=== PATIENT | male | born 1950 | race Two or more races ===

== ENCOUNTER 2020-09-10 18:48 | Inpatient (IN) | payer OTHER, MEDICAID ==
[~2020-09-10] VITALS: Ht 177.8 cm; Wt 118.0 kg
[~2020-09-10 18:48] MED LIST: BENA10TA9 PO; DICL75TA3 PO; DOXE25CA2 PO; GEMF600T7 PO; LOS50T PO; METF-489 PO; PRAV20TA3 PO; TRAM-297 PO
[2020-09-10] MEDS ORDERED: SUCCINYLCHOLINE CHLORIDE 20 MG/ML 10ML VIAL IV ONE (19:17)
[2020-09-10] MEDS ORDERED: ETOMIDATE (2MG/ML) 20ML VIAL IV ONE (19:17)
[2020-09-10] MEDS ORDERED: MIDAZOLAM HCL 5 MG/ML-1ML VIAL ONE (19:23)
[2020-09-10] MEDS ORDERED: MIDAZOLAM DRIP 50 mg/50mL 50 ML IV ONE (19:24)
[2020-09-10 19:36] LABS: Basophils # (auto) 0 10 ^3/uL (0-0.2); Basophils % (auto) 0.3 % (0.0-2.0); Eosinophils # (auto) 0 10 ^3/uL (0-0.8); Hematocrit 36.9 % (41.0-53.0); Lymphocytes # (auto) 1.2 10 ^3/uL (0.4-5.4); Lymphocytes % (auto) 7.7 % (10.0-50.0); Mean Corpuscular Hemoglobin 29.9 pg (28.0-32.0); Mean Corpuscular Hgb Conc. 35.3 g/dL (32.0-36.0); Mean Corpuscular Volume 84.7 fL (80.0-100.0); Monocytes % (auto) 6.7 % (0.0-12.0); Neutrophils # (auto) 13.1 10 ^3/uL (1.6-8.6); Neutrophils % (auto) 85.3 % (37.0-80.0); Platelet Count (auto) 306 10^3/uL (140-450); Red Blood Cells 4.35 10^6/uL (4.5-5.90); Red Cell Distribution Width 14.6 % (11.8-14.3); White Blood Cell 15.4 10^3/uL (4.4-10.8)
[2020-09-10] MEDS ORDERED: DOXYCYCLINE 100MG/250ML 250 ML IV ONE (19:45)
[2020-09-10] MEDS ORDERED: DexAMETHasone SOD PHOS 10MG/1ML VIAL INJ IV ONE (19:45)
[2020-09-10] MEDS ORDERED: SODIUM CHLORIDE 0.9% 500 ML IV ONE (19:45)
[2020-09-10 19:54] LABS: Albumin 2.5 g/dL (3.4-5.0); Calcium 7.7 mg/dL (8.5-10.1); Potassium 3.6 mmol/L (3.5-5.1)
[2020-09-10 20:06] LABS: BUN/Creatinine Ratio 22.5; Bilirubin, Total 1.3 mg/dL (0.2-1.0); Total Protein 7.4 g/dL (6.4-8.2)
[2020-09-10] MEDS ORDERED: SODIUM CHLORIDE 0.9% 1,000 ML IV ONE (20:15)
[2020-09-10 20:25] LABS: INR 1.29 (0.9-1.15); Partial Thromboplastin Time 26.6 sec (23.0-31.2)
[2020-09-10] MEDS ORDERED: NOREPINEPHRINE 8 MG/250ML KIT 250 ML IV ONE (20:35)
[2020-09-10] MEDS: NOREPINEPHRINE 8 MG/250ML KIT 250 ML IV SCH (20:45)
[2020-09-10] MEDS ORDERED: PHENYLEPHRINE IV 250 ML IV ONE ×2 (20:57→21:00)
[2020-09-10 21:42] LABS: Lactic Acid w/Reflex 11.2 mmol/L (0.4-2.0)
[2020-09-10 22:03] VITALS: BP 110/68
[2020-09-10] MEDS: PROPOFOL 100 ML IV SCH (22:30)
[2020-09-10] MEDS: MIDAZOLAM DRIP 50 mg/50mL 50 ML IV SCH (23:11)
[2020-09-11] VITALS (77 sets, daily range): BP systolic 28–167; BP diastolic 14–98
[2020-09-11] MEDS ORDERED: NITROGLYCERIN 0.4 MG SL TAB SL PRN (00:30)
[2020-09-11] MEDS ORDERED: ONDANSETRON HCL 4 MG/2 ML VIAL IV PRN (00:30)
[2020-09-11] MEDS ORDERED: VANCOMYCIN PER PHARMACY 0 MG IV SCH (00:30)
[2020-09-11] MEDS ORDERED: MORPHINE SULF INJ 2 MG/ML SYRINGE 1ML IV PRN (00:30)
[2020-09-11] MEDS ORDERED: SODIUM CHLORIDE 0.9% 1,000 ML IV SCH (00:30)
[2020-09-11] MEDS ORDERED: DEXTROSE (50%) 50ML SYRG IV PRN ×2 (00:30→14:30)
[2020-09-11] MEDS ORDERED: ALBUTEROL SULF HFA 90MCG INH 200DOSE IN PRN (00:30)
[2020-09-11] MEDS ORDERED: VANCOMYCIN 1GM/250ML 250 ML IV ONE ×2 (01:00→03:58)
[2020-09-11 01:36] LABS: Magnesium 2.7 mg/dL (1.6-2.6)
[2020-09-11 02:10] LABS: CRP High Sensitivity > 19.0 mg/dL (< 0.3); Lactate Dehydrogenase 2402 U/L (87-241)
[2020-09-11] MEDS ORDERED: SODIUM BICARBONATE 8.4 % INJ 50ML VIAL IV ONE (03:59)
[2020-09-11] MEDS: SODIUM BICARBONATE 50ML VIAL 100 ML in SOD CHL 0.45% 1,000 ML IV SCH ×3 (04:14→23:32)
[2020-09-11] MEDS: MIDAZOLAM DRIP 50 mg/50mL 50 ML IV SCH ×3 (04:19→12:00)
[2020-09-11] MEDS: ACCU-CHEK COMFORT CURVE STRIP VI SCH ×8 (06:00→22:30)
[2020-09-11] MEDS: InsuLIN REG 1unit/0.01ml Soln (100units/ml) SC SCH ×2 (06:00→12:12)
[2020-09-11] MEDS ORDERED: PHENYLEPHRINE IV 0 ML IV ONE (06:38)
[2020-09-11] MEDS ORDERED: BUDESONIDE (INHALATION) 180 MCG IH IN SCH (10:00)
[2020-09-11] MEDS: DOXYCYCLINE 100MG/250ML 250 ML IV SCH ×2 (10:27→22:00)
[2020-09-11] MEDS: DexAMETHasone SOD PHOS 10MG/1ML VIAL INJ IV SCH (10:28)
[2020-09-11] MEDS: ENOXAPARIN SOD 40 MG/0.4 ML SYRINGE SC SCH (10:28)
[2020-09-11] MEDS: ASCORBIC ACID 1,000 MG TAB PO SCH (10:28)
[2020-09-11] MEDS: ASPirin 81 mg TAB PO SCH (10:29)
[2020-09-11] MEDS: CHOLECALCIFEROL (VITD3) 2,000 UNIT CAP/TAB PO SCH (10:29)
[2020-09-11] MEDS: PROPOFOL 100 ML IV SCH (10:42)
[2020-09-11] MEDS: NOREPINEPHRINE 8 MG/250ML KIT 250 ML IV SCH (10:43)
[2020-09-11] MEDS ORDERED: QUEtiapine FUMARATE 25 MG TAB PO ONE (13:00)
[2020-09-11 13:11] LABS: Albumin 2.3 g/dL (3.4-5.0); Calcium 6.9 mg/dL (8.5-10.1)
[2020-09-11 13:31] LABS: Bilirubin, Total 1.4 mg/dL (0.2-1.0); Total Protein 6.9 g/dL (6.4-8.2)
[2020-09-11 13:34] LABS: BUN/Creatinine Ratio 23.6
[2020-09-11] MEDS ORDERED: HEPARIN SODIUM (PORCINE) 5000 UNITS/ML 1ML VIAL IV ONE (13:45)
[2020-09-11 14:47] LABS: Basophils # (auto) 0 10 ^3/uL (0-0.2); Basophils % (auto) 0.3 % (0.0-2.0); Eosinophils # (auto) 0 10 ^3/uL (0-0.8); Hematocrit 40.6 % (41.0-53.0); Hemoglobin 14.4 g/dL (13.5-17.5); Lymphocytes # (auto) 0.7 10 ^3/uL (0.4-5.4); Lymphocytes % (auto) 5.1 % (10.0-50.0); Mean Corpuscular Hemoglobin 29.5 pg (28.0-32.0); Mean Corpuscular Hgb Conc. 35.5 g/dL (32.0-36.0); Mean Corpuscular Volume 83.1 fL (80.0-100.0); Monocytes # (auto) 0.7 10 ^3/uL (0-1.3); Monocytes % (auto) 5.6 % (0.0-12.0); Neutrophils # (auto) 11.6 10 ^3/uL (1.6-8.6); Nucleated Red Blood Cells % 0.1 %; Platelet Count (auto) 180 10^3/uL (140-450); Red Blood Cells 4.88 10^6/uL (4.5-5.90); Red Cell Distribution Width 14.7 % (11.8-14.3)
[2020-09-11 15:12] LABS: INR 1.43 (0.9-1.15); Partial Thromboplastin Time 28.7 sec (23.0-31.2)
[2020-09-11] MEDS: InsuLIN R (HUMAN) 100 UNITS in SODIUM CHL 0.9% 99 ML IV SCH (15:38)
[2020-09-11] MEDS: HEPARIN DRIP/D5W 100UNITS/ML 250 ML IV SCH (15:40)
[2020-09-11 17:46] LABS: Urine Amorphous Crystal MANY /hpf (None Seen); Urine Bacteria NONE SEEN /hpf (None Seen); Urine Blood 2+ /uL (Negative); Urine Budding Yeast MANY /hpf (None Seen); Urine Mucus FEW (None Seen); Urine Specific Gravity 1.015 (1.001-1.035); Urine WBC 31 /hpf (0 - 3); Urine WBC Clumps PRESENT /hpf (None Seen)
[2020-09-11 18:08] LABS: Creatinine, Urine 105 mg/dL (30.0-125.0); Sodium Urine < 5 mmol/L (40-220)
[2020-09-11 22:05] LABS: Basophils # (auto) 0 10 ^3/uL (0-0.2); Basophils % (auto) 0.1 % (0.0-2.0); Eosinophils # (auto) 0 10 ^3/uL (0-0.8); Hematocrit 40.4 % (41.0-53.0); Hemoglobin 14.3 g/dL (13.5-17.5); Lymphocytes # (auto) 0.8 10 ^3/uL (0.4-5.4); Lymphocytes % (auto) 5.3 % (10.0-50.0); Mean Corpuscular Hgb Conc. 35.4 g/dL (32.0-36.0); Mean Corpuscular Volume 81.9 fL (80.0-100.0); Monocytes # (auto) 0.7 10 ^3/uL (0-1.3); Monocytes % (auto) 4.6 % (0.0-12.0); Neutrophils # (auto) 13.1 10 ^3/uL (1.6-8.6); Nucleated Red Blood Cells % 0.5 %; Platelet Count (auto) 182 10^3/uL (140-450); Red Blood Cells 4.93 10^6/uL (4.5-5.90); Red Cell Distribution Width 14.7 % (11.8-14.3); White Blood Cell 14.5 10^3/uL (4.4-10.8)
[2020-09-11 22:19] LABS: INR 1.4 (0.9-1.15); Partial Thromboplastin Time 39.3 sec (23.0-31.2)
[2020-09-11 22:20] LABS: Albumin 2.3 g/dL (3.4-5.0); Calcium 6.9 mg/dL (8.5-10.1); Magnesium 2.6 mg/dL (1.6-2.6); Potassium 3.4 mmol/L (3.5-5.1)
[2020-09-11 22:38] LABS: BUN/Creatinine Ratio 25.8; Bilirubin, Direct 0.8 mg/dL (0-0.2); Bilirubin, Total 1.1 mg/dL (0.2-1.0); Total Protein 6.7 g/dL (6.4-8.2)
[2020-09-12] VITALS (85 sets, daily range): BP systolic 101–160; BP diastolic 21–56
[2020-09-12] MEDS: ACCU-CHEK COMFORT CURVE STRIP VI SCH ×15 (01:51→23:00)
[2020-09-12] MEDS: MIDAZOLAM DRIP 50 mg/50mL 50 ML IV SCH ×3 (01:51→03:21)
[2020-09-12] MEDS ORDERED: NOREPINEPHRINE 8 MG/250ML KIT 250 ML IV ONE (05:27)
[2020-09-12 05:40] LABS: Hematocrit 38.1 % (41.0-53.0); Mean Corpuscular Hgb Conc. 36.6 g/dL (32.0-36.0); Red Cell Distribution Width 14.9 % (11.8-14.3)
[2020-09-12 05:43] LABS: Hemoglobin 13.9 g/dL (13.5-17.5); Mean Corpuscular Hemoglobin 29.5 pg (28.0-32.0); Mean Corpuscular Volume 80.6 fL (80.0-100.0); Platelet Count (auto) 204 10^3/uL (140-450); Red Blood Cells 4.72 10^6/uL (4.5-5.90); White Blood Cell 17.1 10^3/uL (4.4-10.8)
[2020-09-12 05:54] LABS: Potassium 3.2 mmol/L (3.5-5.1)
[2020-09-12 06:02] LABS: Basophils % (manual) 0 (0.0-2.0); Blast Cells 0; Eosinophils % (manual) 0 (0-7); Metamyelocytes % 0; Myelocytes % 0; Promyelocytes % 0; Reactive Lymphocytes 0
[2020-09-12 06:12] LABS: Albumin 2.2 g/dL (3.4-5.0); BUN/Creatinine Ratio 26.4; Bilirubin, Total 1.3 mg/dL (0.2-1.0); CRP High Sensitivity 16.3 mg/dL (< 0.3); Magnesium 2.5 mg/dL (1.6-2.6); Total Protein 6.5 g/dL (6.4-8.2)
[2020-09-12 07:45] LABS: INR 1.34 (0.9-1.15); Partial Thromboplastin Time 34.3 sec (23.0-31.2)
[2020-09-12 08:15] LABS: Band Neutrophils % (manual) 3; Lymphocytes % (manual) 4 (10.0-50.0); Monocytes % (manual) 9 (0-12)
[2020-09-12] MEDS ORDERED: HEPARIN SODIUM (PORCINE) 5000 UNITS/ML 1ML VIAL ONE (08:28)
[2020-09-12] MEDS: InsuLIN R (HUMAN) 100 UNITS in SODIUM CHL 0.9% 99 ML IV SCH ×7 (09:20→23:00)
[2020-09-12] MEDS: ASPirin 81 mg TAB PO SCH (10:00)
[2020-09-12] MEDS: ENOXAPARIN SOD 40 MG/0.4 ML SYRINGE SC SCH (10:00)
[2020-09-12] MEDS: DexAMETHasone SOD PHOS 10MG/1ML VIAL INJ IV SCH (10:39)
[2020-09-12] MEDS: CHOLECALCIFEROL (VITD3) 2,000 UNIT CAP/TAB PO SCH (10:40)
[2020-09-12] MEDS: DOXYCYCLINE 100MG/250ML 250 ML IV SCH (10:40)
[2020-09-12] MEDS: ASCORBIC ACID 1,000 MG TAB PO SCH (10:40)
[2020-09-12] MEDS ORDERED: VANCOMYCIN 1GM/250ML 250 ML IV ONE (12:00)
[2020-09-12] MEDS ORDERED: levoFLOXacin 500MG 100 ML IV ONE (12:15)
[2020-09-12] MEDS: POTASSIUM CHL 20MEQ/100ML 100 ML IV SCH ×3 (14:30→18:49)
[2020-09-12] MEDS: NOREPINEPHRINE 8 MG/250ML KIT 250 ML IV SCH (18:50)
[2020-09-13] VITALS (91 sets, daily range): BP systolic 57–165; BP diastolic 26–72
[2020-09-13] MEDS: InsuLIN R (HUMAN) 100 UNITS in SODIUM CHL 0.9% 99 ML IV SCH (00:30)
[2020-09-13] MEDS: ACCU-CHEK COMFORT CURVE STRIP VI SCH ×8 (00:30→18:15)
[2020-09-13] MEDS: HEPARIN DRIP/D5W 100UNITS/ML 250 ML IV SCH ×2 (01:05→11:46)
[2020-09-13] MEDS: NOREPINEPHRINE 8 MG/250ML KIT 250 ML IV SCH (01:35)
[2020-09-13 01:58] LABS: INR 1.37 (0.9-1.15); Partial Thromboplastin Time 50.1 sec (23.0-31.2)
[2020-09-13 05:13] LABS: Basophils # (auto) 0 10 ^3/uL (0-0.2); Basophils % (auto) 0.1 % (0.0-2.0); Eosinophils # (auto) 0 10 ^3/uL (0-0.8); Hematocrit 34.2 % (41.0-53.0); Hemoglobin 11.8 g/dL (13.5-17.5); Lymphocytes # (auto) 0.7 10 ^3/uL (0.4-5.4); Lymphocytes % (auto) 5.1 % (10.0-50.0); Mean Corpuscular Hemoglobin 28.7 pg (28.0-32.0); Mean Corpuscular Hgb Conc. 34.6 g/dL (32.0-36.0); Mean Corpuscular Volume 82.9 fL (80.0-100.0); Monocytes # (auto) 0.9 10 ^3/uL (0-1.3); Monocytes % (auto) 6.8 % (0.0-12.0); Neutrophils # (auto) 12.1 10 ^3/uL (1.6-8.6); Nucleated Red Blood Cells % 0.3 %; Platelet Count (auto) 224 10^3/uL (140-450); Red Blood Cells 4.13 10^6/uL (4.5-5.90); Red Cell Distribution Width 14.6 % (11.8-14.3); White Blood Cell 13.7 10^3/uL (4.4-10.8)
[2020-09-13 05:35] LABS: Calcium 6.9 mg/dL (8.5-10.1); Potassium 3.2 mmol/L (3.5-5.1)
[2020-09-13 05:44] LABS: BUN/Creatinine Ratio 28.8; CRP High Sensitivity 8.05 mg/dL (< 0.3)
[2020-09-13] MEDS: SODIUM BICARBONATE 50ML VIAL 100 ML in SOD CHL 0.45% 1,000 ML IV SCH ×2 (07:15→21:55)
[2020-09-13] MEDS: ENOXAPARIN SOD 40 MG/0.4 ML SYRINGE SC SCH (09:21)
[2020-09-13] MEDS: ASCORBIC ACID 1,000 MG TAB PO SCH ×2 (09:21→10:40)
[2020-09-13] MEDS: CHOLECALCIFEROL (VITD3) 2,000 UNIT CAP/TAB PO SCH ×2 (09:21→10:40)
[2020-09-13] MEDS: DexAMETHasone SOD PHOS 10MG/1ML VIAL INJ IV SCH ×2 (09:21→10:39)
[2020-09-13] MEDS: ASPirin 81 mg TAB PO SCH ×2 (09:21→10:39)
[2020-09-13] MEDS: levoFLOXacin 250MG 50 ML IV SCH ×2 (09:21→10:39)
[2020-09-13] MEDS: PROPOFOL 100 ML IV SCH ×2 (09:28→22:00)
[2020-09-13] MEDS ORDERED: POTASSIUM CHL 20MEQ/100ML 100 ML IV ONE ×2 (10:45→11:02)
[2020-09-13] MEDS ORDERED: DEXTROSE (50%) 50ML SYRG IV PRN (10:45)
[2020-09-13] MEDS ORDERED: PPN PER PHARMACY 0 ML IV SCH (10:45)
[2020-09-13 10:52] LABS: INR 1.34 (0.9-1.15); Partial Thromboplastin Time 44.1 sec (23.0-31.2)
[2020-09-13] MEDS: InsuLIN REG 1unit/0.01ml Soln (100units/ml) SC SCH ×2 (11:33→18:17)
[2020-09-13] MEDS: FUROSEMIDE 40 MG/4 ML VIAL IV SCH (13:00)
[2020-09-13] MEDS ORDERED: CLOPIDOGREL BISULFATE 75 MG TAB ONE (13:35)
[2020-09-13] MEDS ORDERED: FUROSEMIDE 40 MG/4 ML VIAL ONE (13:35)
[2020-09-13] MEDS ORDERED: CLOPIDOGREL 300 MG TAB PO ONE (14:30)
[2020-09-13 15:08] LABS: Creatinine, Urine 49 mg/dL (30.0-125.0); Sodium Urine 35 mmol/L (40-220)
[2020-09-13 15:15] LABS: INR 1.32 (0.9-1.15); Partial Thromboplastin Time 32.1 sec (23.0-31.2)
[2020-09-13 15:26] LABS: Magnesium 2.2 mg/dL (1.6-2.6); Phosphorus 2.7 mg/dL (2.5-4.90)
[2020-09-13] MEDS ORDERED: VANCOMYCIN 1GM/250ML 250 ML IV ONE (18:00)
[2020-09-13] MEDS ORDERED: PPN PER PHARMACY IV NR ×5 (20:00)
[2020-09-14] VITALS (100 sets, daily range): BP systolic 82–147; BP diastolic 40–65
[2020-09-14] MEDS: ACCU-CHEK COMFORT CURVE STRIP VI SCH ×5 (00:19→23:26)
[2020-09-14] MEDS: InsuLIN REG 1unit/0.01ml Soln (100units/ml) SC SCH ×4 (00:20→17:31)
[2020-09-14 03:56] LABS: Basophils # (auto) 0.2 10 ^3/uL (0-0.2); Basophils % (auto) 1.1 % (0.0-2.0); Eosinophils # (auto) 0 10 ^3/uL (0-0.8); Hemoglobin 12.5 g/dL (13.5-17.5); Lymphocytes # (auto) 0.4 10 ^3/uL (0.4-5.4); Lymphocytes % (auto) 3.2 % (10.0-50.0); Mean Corpuscular Hemoglobin 28.7 pg (28.0-32.0); Mean Corpuscular Hgb Conc. 34.7 g/dL (32.0-36.0); Mean Corpuscular Volume 82.9 fL (80.0-100.0); Monocytes # (auto) 1.1 10 ^3/uL (0-1.3); Neutrophils # (auto) 11.7 10 ^3/uL (1.6-8.6); Neutrophils % (auto) 87.7 % (37.0-80.0); Nucleated Red Blood Cells % 0.4 %; Platelet Count (auto) 231 10^3/uL (140-450); Red Blood Cells 4.34 10^6/uL (4.5-5.90); Red Cell Distribution Width 14.9 % (11.8-14.3); White Blood Cell 13.3 10^3/uL (4.4-10.8)
[2020-09-14 04:34] LABS: INR 1.25 (0.9-1.15); Partial Thromboplastin Time 28.4 sec (23.0-31.2)
[2020-09-14] MEDS: CLOPIDOGREL BISULFATE 75 MG TAB PO SCH (09:56)
[2020-09-14] MEDS: SODIUM CHLOR 0.9% PF (SALINE LOCK) 10ML VIAL/SYR IV SCH ×2 (09:56→21:37)
[2020-09-14] MEDS: FUROSEMIDE 40 MG/4 ML VIAL IV SCH (09:56)
[2020-09-14 10:44] LABS: Albumin 2.1 g/dL (3.4-5.0); Calcium 7.4 mg/dL (8.5-10.1); Potassium 3.7 mmol/L (3.5-5.1)
[2020-09-14 10:58] LABS: CRP High Sensitivity 6.24 mg/dL (< 0.3); Pre Albumin 14.2 mg/dL (20.0-40.0)
[2020-09-14 11:02] LABS: BUN/Creatinine Ratio 33.7; Bilirubin, Total 1.2 mg/dL (0.2-1.0); Phosphorus 3.8 mg/dL (2.5-4.90); Total Protein 6.4 g/dL (6.4-8.2)
[2020-09-14 11:10] LABS: Magnesium 2.2 mg/dL (1.6-2.6)
[2020-09-14] MEDS: SODIUM BICARBONATE 50ML VIAL 100 ML in SOD CHL 0.45% 1,000 ML IV SCH (12:35)
[2020-09-14] MEDS ORDERED: PPN PER PHARMACY IV NR ×8 (20:00)
[2020-09-14] MEDS: PROPOFOL 100 ML IV SCH (22:00)
[2020-09-14] MEDS: MIDAZOLAM DRIP 50 mg/50mL 50 ML IV SCH (23:00)
[2020-09-14] MEDS: NOREPINEPHRINE 8 MG/250ML KIT 250 ML IV SCH (23:00)
[2020-09-15] VITALS (91 sets, daily range): BP systolic 71–186; BP diastolic 35–79
[2020-09-15 04:43] LABS: Basophils # (auto) 0 10 ^3/uL (0-0.2); Basophils % (auto) 0.1 % (0.0-2.0); Eosinophils # (auto) 0 10 ^3/uL (0-0.8); Eosinophils % (auto) 0.1 % (0.0-7.0); Hematocrit 35.9 % (41.0-53.0); Hemoglobin 12.4 g/dL (13.5-17.5); Lymphocytes # (auto) 0.4 10 ^3/uL (0.4-5.4); Mean Corpuscular Hgb Conc. 34.5 g/dL (32.0-36.0); Mean Corpuscular Volume 84.1 fL (80.0-100.0); Monocytes # (auto) 0.9 10 ^3/uL (0-1.3); Monocytes % (auto) 7.1 % (0.0-12.0); Neutrophils # (auto) 11.6 10 ^3/uL (1.6-8.6); Neutrophils % (auto) 89.7 % (37.0-80.0); Platelet Count (auto) 209 10^3/uL (140-450); Red Blood Cells 4.27 10^6/uL (4.5-5.90); Red Cell Distribution Width 14.7 % (11.8-14.3); White Blood Cell 12.9 10^3/uL (4.4-10.8)
[2020-09-15 05:04] LABS: Magnesium 2.2 mg/dL (1.6-2.6); Potassium 3.9 mmol/L (3.5-5.1)
[2020-09-15 05:11] LABS: BUN/Creatinine Ratio 36.8; Bilirubin, Total 1.3 mg/dL (0.2-1.0); Calcium 7.7 mg/dL (8.5-10.1); Phosphorus 3.7 mg/dL (2.5-4.90); Total Protein 6.5 g/dL (6.4-8.2)
[2020-09-15] MEDS: InsuLIN REG 1unit/0.01ml Soln (100units/ml) SC SCH ×4 (06:02→17:56)
[2020-09-15] MEDS: ACCU-CHEK COMFORT CURVE STRIP VI SCH ×3 (06:03→17:54)
[2020-09-15] MEDS: FUROSEMIDE 40 MG/4 ML VIAL IV SCH (09:21)
[2020-09-15] MEDS: levoFLOXacin 250MG 50 ML IV SCH (09:22)
[2020-09-15] MEDS: DexAMETHasone SOD PHOS 10MG/1ML VIAL INJ IV SCH (09:22)
[2020-09-15] MEDS: ASPirin 81 mg TAB PO SCH (09:22)
[2020-09-15] MEDS: CLOPIDOGREL BISULFATE 75 MG TAB PO SCH (09:22)
[2020-09-15] MEDS: ASCORBIC ACID 1,000 MG TAB PO SCH (09:22)
[2020-09-15] MEDS: CHOLECALCIFEROL (VITD3) 2,000 UNIT CAP/TAB PO SCH (10:00)
[2020-09-15] MEDS: SODIUM CHLOR 0.9% PF (SALINE LOCK) 10ML VIAL/SYR IV SCH (10:00)
[2020-09-15] MEDS ORDERED: VANCOMYCIN 1GM/250ML 250 ML IV ONE (11:00)
[2020-09-15] MEDS ORDERED: TPN PER PHARMACY IV NR ×10 (20:00)
[2020-09-15] MEDS: NOREPINEPHRINE 8 MG/250ML KIT 250 ML IV SCH (20:14)
[2020-09-15] MEDS: PROPOFOL 100 ML IV SCH (22:00)
[2020-09-15] MEDS: MIDAZOLAM DRIP 50 mg/50mL 50 ML IV SCH (23:00)
[2020-09-16] VITALS (87 sets, daily range): BP systolic 96–152; BP diastolic 43–82
[2020-09-16] MEDS: ACCU-CHEK COMFORT CURVE STRIP VI SCH ×3 (00:04→11:44)
[2020-09-16] MEDS: SODIUM CHLOR 0.9% PF (SALINE LOCK) 10ML VIAL/SYR IV SCH ×3 (00:04→22:00)
[2020-09-16] MEDS: InsuLIN REG 1unit/0.01ml Soln (100units/ml) SC SCH ×4 (00:07→11:43)
[2020-09-16 04:37] LABS: Basophils # (auto) 0 10 ^3/uL (0-0.2); Basophils % (auto) 0.1 % (0.0-2.0); Eosinophils # (auto) 0 10 ^3/uL (0-0.8); Eosinophils % (auto) 0.1 % (0.0-7.0); Hemoglobin 12.4 g/dL (13.5-17.5); Lymphocytes # (auto) 0.3 10 ^3/uL (0.4-5.4); Lymphocytes % (auto) 2.3 % (10.0-50.0); Mean Corpuscular Hemoglobin 29.2 pg (28.0-32.0); Mean Corpuscular Hgb Conc. 34.6 g/dL (32.0-36.0); Mean Corpuscular Volume 84.5 fL (80.0-100.0); Monocytes # (auto) 0.4 10 ^3/uL (0-1.3); Monocytes % (auto) 3.2 % (0.0-12.0); Neutrophils # (auto) 12.2 10 ^3/uL (1.6-8.6); Neutrophils % (auto) 94.3 % (37.0-80.0); Platelet Count (auto) 176 10^3/uL (140-450); Red Blood Cells 4.25 10^6/uL (4.5-5.90); Red Cell Distribution Width 15.4 % (11.8-14.3)
[2020-09-16 04:48] LABS: Calcium 7.9 mg/dL (8.5-10.1); Magnesium 2.1 mg/dL (1.6-2.6)
[2020-09-16 05:01] LABS: Albumin 2.1 g/dL (3.4-5.0); BUN/Creatinine Ratio 44.4; CRP High Sensitivity 2.62 mg/dL (< 0.3); Phosphorus 5.2 mg/dL (2.5-4.90); Total Protein 6.2 g/dL (6.4-8.2)
[2020-09-16] MEDS: FUROSEMIDE 40 MG/4 ML VIAL IV SCH (10:17)
[2020-09-16] MEDS: DexAMETHasone SOD PHOS 10MG/1ML VIAL INJ IV SCH (10:17)
[2020-09-16] MEDS: CLOPIDOGREL BISULFATE 75 MG TAB PO SCH (10:18)
[2020-09-16] MEDS: ASCORBIC ACID 1,000 MG TAB PO SCH (10:18)
[2020-09-16] MEDS: levoFLOXacin 250MG 50 ML IV SCH (10:18)
[2020-09-16] MEDS: CHOLECALCIFEROL (VITD3) 2,000 UNIT CAP/TAB PO SCH (10:18)
[2020-09-16] MEDS: ASPirin 81 mg TAB PO SCH (10:18)
[2020-09-16] MEDS ORDERED: TPN PER PHARMACY IV NR ×8 (20:00)
[2020-09-16] MEDS: NOREPINEPHRINE 8 MG/250ML KIT 250 ML IV SCH (20:45)
[2020-09-16] MEDS: PROPOFOL 100 ML IV SCH (22:00)
[2020-09-16] MEDS: MIDAZOLAM DRIP 50 mg/50mL 50 ML IV SCH (23:00)
[2020-09-17] VITALS (85 sets, daily range): BP systolic 111–171; BP diastolic 51–81
[2020-09-17 04:51] LABS: Basophils # (auto) 0 10 ^3/uL (0-0.2); Basophils % (auto) 0.1 % (0.0-2.0); Eosinophils # (auto) 0.1 10 ^3/uL (0-0.8); Eosinophils % (auto) 0.8 % (0.0-7.0); Hematocrit 38.8 % (41.0-53.0); Hemoglobin 13.3 g/dL (13.5-17.5); Lymphocytes # (auto) 0.4 10 ^3/uL (0.4-5.4); Mean Corpuscular Hemoglobin 29.3 pg (28.0-32.0); Mean Corpuscular Hgb Conc. 34.4 g/dL (32.0-36.0); Mean Corpuscular Volume 85.4 fL (80.0-100.0); Monocytes # (auto) 0.6 10 ^3/uL (0-1.3); Monocytes % (auto) 3.6 % (0.0-12.0); Neutrophils # (auto) 16.1 10 ^3/uL (1.6-8.6); Neutrophils % (auto) 93.5 % (37.0-80.0); Platelet Count (auto) 182 10^3/uL (140-450); Red Blood Cells 4.54 10^6/uL (4.5-5.90); Red Cell Distribution Width 15.3 % (11.8-14.3); White Blood Cell 17.2 10^3/uL (4.4-10.8)
[2020-09-17 05:11] LABS: Potassium 3.9 mmol/L (3.5-5.1)
[2020-09-17 05:21] LABS: Albumin 2.3 g/dL (3.4-5.0); BUN/Creatinine Ratio 44.4; Bilirubin, Total 3.6 mg/dL (0.2-1.0); Calcium 8.4 mg/dL (8.5-10.1); Magnesium 2.1 mg/dL (1.6-2.6); Total Protein 6.8 g/dL (6.4-8.2)
[2020-09-17] MEDS: ACCU-CHEK COMFORT CURVE STRIP VI SCH ×5 (06:23→17:02)
[2020-09-17] MEDS: InsuLIN REG 1unit/0.01ml Soln (100units/ml) SC SCH ×5 (06:26→17:02)
[2020-09-17] MEDS: DexAMETHasone SOD PHOS 10MG/1ML VIAL INJ IV SCH (09:36)
[2020-09-17] MEDS: SODIUM CHLOR 0.9% PF (SALINE LOCK) 10ML VIAL/SYR IV SCH ×2 (09:37→21:59)
[2020-09-17] MEDS: FUROSEMIDE 40 MG/4 ML VIAL IV SCH (09:37)
[2020-09-17] MEDS: ASCORBIC ACID 1,000 MG TAB PO SCH (09:38)
[2020-09-17] MEDS: CHOLECALCIFEROL (VITD3) 2,000 UNIT CAP/TAB PO SCH (09:38)
[2020-09-17] MEDS: ASPirin 81 mg TAB PO SCH (09:38)
[2020-09-17] MEDS: CLOPIDOGREL BISULFATE 75 MG TAB PO SCH (09:38)
[2020-09-17] MEDS: levoFLOXacin 250MG 50 ML IV SCH (09:46)
[2020-09-17] MEDS ORDERED: VANCOMYCIN 1GM/250ML 250 ML IV ONE (11:00)
[2020-09-17] MEDS: TPN PER PHARMACY IV NR ×7 (20:02)
[2020-09-17] MEDS: NOREPINEPHRINE 8 MG/250ML KIT 250 ML IV SCH (20:45)
[2020-09-17] MEDS: PROPOFOL 100 ML IV SCH (22:00)
[2020-09-17] MEDS: MIDAZOLAM DRIP 50 mg/50mL 50 ML IV SCH (23:00)
[2020-09-18] VITALS (91 sets, daily range): BP systolic 95–157; BP diastolic 55–75
[2020-09-18] MEDS: ACCU-CHEK COMFORT CURVE STRIP VI SCH ×4 (00:16→18:00)
[2020-09-18] MEDS: InsuLIN REG 1unit/0.01ml Soln (100units/ml) SC SCH ×4 (00:18→18:56)
[2020-09-18 03:28] LABS: Basophils # (auto) 0.2 10 ^3/uL (0-0.2); Basophils % (auto) 0.9 % (0.0-2.0); Eosinophils # (auto) 0.1 10 ^3/uL (0-0.8); Eosinophils % (auto) 0.3 % (0.0-7.0); Hemoglobin 13.7 g/dL (13.5-17.5); Lymphocytes # (auto) 0.2 10 ^3/uL (0.4-5.4); Lymphocytes % (auto) 1.5 % (10.0-50.0); Mean Corpuscular Hemoglobin 28.8 pg (28.0-32.0); Mean Corpuscular Hgb Conc. 33.3 g/dL (32.0-36.0); Mean Corpuscular Volume 86.4 fL (80.0-100.0); Monocytes # (auto) 0.6 10 ^3/uL (0-1.3); Monocytes % (auto) 3.3 % (0.0-12.0); Neutrophils # (auto) 15.9 10 ^3/uL (1.6-8.6); Platelet Count (auto) 189 10^3/uL (140-450); Red Blood Cells 4.74 10^6/uL (4.5-5.90); Red Cell Distribution Width 15.8 % (11.8-14.3); White Blood Cell 16.9 10^3/uL (4.4-10.8)
[2020-09-18 04:00] LABS: Albumin 2.4 g/dL (3.4-5.0); Calcium 8.8 mg/dL (8.5-10.1); Magnesium 2.1 mg/dL (1.6-2.6); Potassium 3.5 mmol/L (3.5-5.1)
[2020-09-18 04:09] LABS: BUN/Creatinine Ratio 47.5; Bilirubin, Total 2.5 mg/dL (0.2-1.0); CRP High Sensitivity 6.42 mg/dL (< 0.3); Phosphorus 4.2 mg/dL (2.5-4.90); Total Protein 7.1 g/dL (6.4-8.2)
[2020-09-18] MEDS: DexAMETHasone SOD PHOS 10MG/1ML VIAL INJ IV SCH (10:14)
[2020-09-18] MEDS: FUROSEMIDE 40 MG/4 ML VIAL IV SCH (10:15)
[2020-09-18] MEDS: ASPirin 81 mg TAB PO SCH (10:15)
[2020-09-18] MEDS: levoFLOXacin 250MG 50 ML IV SCH (10:15)
[2020-09-18] MEDS: SODIUM CHLOR 0.9% PF (SALINE LOCK) 10ML VIAL/SYR IV SCH ×2 (10:15→22:00)
[2020-09-18] MEDS: ASCORBIC ACID 1,000 MG TAB PO SCH (10:16)
[2020-09-18] MEDS: CLOPIDOGREL BISULFATE 75 MG TAB PO SCH (10:16)
[2020-09-18] MEDS: CHOLECALCIFEROL (VITD3) 2,000 UNIT CAP/TAB PO SCH (10:16)
[2020-09-18] MEDS: VANCOMYCIN 1GM/250ML 250 ML IV SCH (10:21)
[2020-09-18 12:32] LABS: Hepatitis A Ab IgM Negative; Hepatitis B Core IgM Negative; Hepatitis B Surface Antigen Negative (Negative); Hepatitis C Antibody Negative (Negative)
[2020-09-18] MEDS: D5W 5% 1,000 ML IV SCH (16:00)
[2020-09-18] MEDS: TPN PER PHARMACY IV NR ×7 (19:20)
[2020-09-18] MEDS ORDERED: TPN PER PHARMACY IV NR ×7 (20:00)
[2020-09-18] MEDS: NOREPINEPHRINE 8 MG/250ML KIT 250 ML IV SCH (20:45)
[2020-09-18] MEDS: PROPOFOL 100 ML IV SCH (22:00)
[2020-09-18] MEDS: MIDAZOLAM DRIP 50 mg/50mL 50 ML IV SCH (23:00)
[2020-09-19] VITALS (61 sets, daily range): BP systolic 101–148; BP diastolic 55–75
[2020-09-19] MEDS: D5W 5% 1,000 ML IV SCH ×2 (03:20→16:40)
[2020-09-19 05:59] LABS: Albumin 2.5 g/dL (3.4-5.0); Calcium 8.6 mg/dL (8.5-10.1); Magnesium 2.1 mg/dL (1.6-2.6); Potassium 3.5 mmol/L (3.5-5.1)
[2020-09-19] MEDS: ACCU-CHEK COMFORT CURVE STRIP VI SCH ×5 (05:59→23:48)
[2020-09-19] MEDS: InsuLIN REG 1unit/0.01ml Soln (100units/ml) SC SCH ×5 (06:00→23:49)
[2020-09-19 06:03] LABS: BUN/Creatinine Ratio 44.8; Bilirubin, Total 1.9 mg/dL (0.2-1.0); Total Protein 7.1 g/dL (6.4-8.2)
[2020-09-19] MEDS: CLOPIDOGREL BISULFATE 75 MG TAB PO SCH (09:57)
[2020-09-19] MEDS: ASCORBIC ACID 1,000 MG TAB PO SCH (09:57)
[2020-09-19] MEDS: ASPirin 81 mg TAB PO SCH (09:57)
[2020-09-19] MEDS: DexAMETHasone SOD PHOS 10MG/1ML VIAL INJ IV SCH (09:57)
[2020-09-19] MEDS: FUROSEMIDE 40 MG/4 ML VIAL IV SCH (09:57)
[2020-09-19] MEDS: levoFLOXacin 250MG 50 ML IV SCH (09:57)
[2020-09-19] MEDS: SODIUM CHLOR 0.9% PF (SALINE LOCK) 10ML VIAL/SYR IV SCH ×2 (09:57→23:48)
[2020-09-19] MEDS: CHOLECALCIFEROL (VITD3) 2,000 UNIT CAP/TAB PO SCH (09:58)
[2020-09-19] MEDS: VANCOMYCIN 1GM/250ML 250 ML IV SCH (11:00)
[2020-09-19] MEDS ORDERED: POTASSIUM ACETATE IV NR ×9 (20:00)
[2020-09-19] MEDS ORDERED: FAT EMULSION IV NR ×9 (20:00)
[2020-09-19] MEDS ORDERED: POTASSIUM CHLORIDE IV NR ×9 (20:00)
[2020-09-19] MEDS ORDERED: [UNRECOGNIZED DRUG - OTHER] IV NR ×9 (20:00)
[2020-09-20] VITALS: BP 112/69
[2020-09-20] MEDS: ACCU-CHEK COMFORT CURVE STRIP VI SCH ×3 (05:46→17:34)
[2020-09-20] MEDS: D5W 5% 1,000 ML IV SCH (05:46)
[2020-09-20] MEDS: InsuLIN REG 1unit/0.01ml Soln (100units/ml) SC SCH ×3 (05:52→17:49)
[2020-09-20 08:00] VITALS: BP 123/67
[2020-09-20 08:50] LABS: Potassium 4.1 mmol/L (3.5-5.1)
[2020-09-20 09:06] LABS: Albumin 2.6 g/dL (3.4-5.0); BUN/Creatinine Ratio 44.6; Bilirubin, Total 3.4 mg/dL (0.2-1.0); Calcium 8.5 mg/dL (8.5-10.1); Magnesium 2.1 mg/dL (1.6-2.6); Phosphorus 6.2 mg/dL (2.5-4.90); Total Protein 7.4 g/dL (6.4-8.2)
[2020-09-20] MEDS ORDERED: TPN PER PHARMACY 0 ML IV SCH (10:00)
[2020-09-20] MEDS: DexAMETHasone SOD PHOS 10MG/1ML VIAL INJ IV SCH (10:03)
[2020-09-20] MEDS: levoFLOXacin 250MG 50 ML IV SCH (10:04)
[2020-09-20] MEDS: ASPirin 81 mg TAB PO SCH (10:04)
[2020-09-20] MEDS: CLOPIDOGREL BISULFATE 75 MG TAB PO SCH (10:04)
[2020-09-20] MEDS: SODIUM CHLOR 0.9% PF (SALINE LOCK) 10ML VIAL/SYR IV SCH (10:04)
[2020-09-20] MEDS: CHOLECALCIFEROL (VITD3) 2,000 UNIT CAP/TAB PO SCH (10:04)
[2020-09-20] MEDS: FUROSEMIDE 40 MG/4 ML VIAL IV SCH (10:04)
[2020-09-20] MEDS: ASCORBIC ACID 1,000 MG TAB PO SCH (10:04)
[2020-09-20] MEDS: VANCOMYCIN 1GM/250ML 250 ML IV SCH (11:43)
[2020-09-20] MEDS ORDERED: POTASSIUM ACETATE IV NR ×16 (12:30→20:00)
[2020-09-20] MEDS ORDERED: [UNRECOGNIZED DRUG - OTHER] IV NR ×16 (12:30→20:00)
[2020-09-20] MEDS ORDERED: CALCIUM GLUC IV NR ×16 (12:30→20:00)
[2020-09-20] MEDS ORDERED: FAT EMULSION IV NR ×16 (12:30→20:00)
[2020-09-20 16:00] VITALS: BP 107/54
[2020-09-20] MEDS ORDERED: Glucerna 1.2 Cal 1Liter BOTTLE GT SCH (18:00)
[2020-09-20] MEDS ORDERED: TPN PER PHARMACY IV NR ×8 (20:00)
[2020-09-20] MEDS ORDERED: ETOMIDATE (2MG/ML) 20ML VIAL IV ONE (23:41)
[2020-09-20] MEDS ORDERED: SUCCINYLCHOLINE CHLORIDE 20 MG/ML 10ML VIAL IV ONE (23:41)
[2020-09-20] MEDS ORDERED: NOREPINEPHRINE 8 MG/250ML KIT 250 ML IV SCH (23:45)
[2020-09-20] MEDS ORDERED: SODIUM CHLORIDE 0.9% 1,000 ML IV ONE (23:45)
[2020-09-21] VITALS (32 sets, daily range): BP systolic 63–103; BP diastolic 22–66
[2020-09-21] MEDS: SODIUM CHLOR 0.9% PF (SALINE LOCK) 10ML VIAL/SYR IV SCH ×3 (00:12→22:00)
[2020-09-21] MEDS: D5W 5% 1,000 ML IV SCH ×3 (00:12→22:00)
[2020-09-21] MEDS: Glucerna 1.2 Cal 1Liter BOTTLE GT SCH ×5 (00:12→22:00)
[2020-09-21] MEDS ORDERED: PHENYLEPHRINE IV 250 ML IV ONE (00:18)
[2020-09-21] MEDS: PHENYLEPHRINE IV 250 ML IV SCH ×3 (01:45→18:25)
[2020-09-21] MEDS: PROPOFOL 100 ML IV SCH (01:45)
[2020-09-21] MEDS: MIDAZOLAM DRIP 50 mg/50mL 50 ML IV SCH ×2 (01:45→12:32)
[2020-09-21] MEDS: NOREPINEPHRINE 8 MG/250ML KIT 250 ML IV SCH ×2 (01:45→08:00)
[2020-09-21] MEDS: fentaNYL Drip 2500mCg/250mlNS 250 ML IV SCH (01:45)
[2020-09-21] MEDS ORDERED: MIDAZOLAM DRIP 50 mg/50mL 100 ML IV ONE (01:48)
[2020-09-21 01:56] LABS: Hematocrit 44.4 % (41.0-53.0); Hemoglobin 14.2 g/dL (13.5-17.5); Mean Corpuscular Hemoglobin 28.6 pg (28.0-32.0); Mean Corpuscular Volume 89.3 fL (80.0-100.0); Platelet Count (auto) 218 10^3/uL (140-450); Red Blood Cells 4.97 10^6/uL (4.5-5.90); Red Cell Distribution Width 15.7 % (11.8-14.3); White Blood Cell 28.9 10^3/uL (4.4-10.8)
[2020-09-21 02:09] LABS: Basophils % (manual) 0 (0.0-2.0); Blast Cells 0; Eosinophils % (manual) 0 (0-7); Metamyelocytes % 0; Myelocytes % 0; Promyelocytes % 0; Reactive Lymphocytes 0
[2020-09-21 02:29] LABS: Albumin 2.4 g/dL (3.4-5.0); Calcium 7.9 mg/dL (8.5-10.1)
[2020-09-21 02:35] LABS: BUN/Creatinine Ratio 26.7; Bilirubin, Total 2.9 mg/dL (0.2-1.0); Total Protein 7.2 g/dL (6.4-8.2)
[2020-09-21 02:36] LABS: Lactic Acid w/Reflex 5.1 mmol/L (0.4-2.0)
[2020-09-21 02:54] LABS: Band Neutrophils % (manual) 3; Lymphocytes % (manual) 2 (10.0-50.0); Monocytes % (manual) 1 (0-12)
[2020-09-21] MEDS ORDERED: CALCIUM GLUC 4.65meq/50ml D5AE 50 ML IV ONE ×2 (03:15→03:16)
[2020-09-21] MEDS: SODIUM BICARBONATE 50ML VIAL 150 ML in D5W 5% 1,000 ML IV SCH ×2 (03:15→14:45)
[2020-09-21] MEDS ORDERED: SODIUM BICARBONATE 8.4 % INJ 50ML VIAL IV ONE (03:15)
[2020-09-21 05:24] LABS: Basophils # (auto) 0.1 10 ^3/uL (0-0.2); Basophils % (auto) 0.3 % (0.0-2.0); Eosinophils # (auto) 0 10 ^3/uL (0-0.8); Hematocrit 43.2 % (41.0-53.0); Hemoglobin 14.4 g/dL (13.5-17.5); Lymphocytes # (auto) 0.5 10 ^3/uL (0.4-5.4); Lymphocytes % (auto) 1.5 % (10.0-50.0); Mean Corpuscular Hemoglobin 29.2 pg (28.0-32.0); Mean Corpuscular Hgb Conc. 33.4 g/dL (32.0-36.0); Mean Corpuscular Volume 87.6 fL (80.0-100.0); Monocytes # (auto) 1.7 10 ^3/uL (0-1.3); Monocytes % (auto) 5.6 % (0.0-12.0); Neutrophils # (auto) 27.7 10 ^3/uL (1.6-8.6); Neutrophils % (auto) 92.6 % (37.0-80.0); Nucleated Red Blood Cells % 0.1 %; Platelet Count (auto) 204 10^3/uL (140-450); Red Blood Cells 4.93 10^6/uL (4.5-5.90); Red Cell Distribution Width 15.7 % (11.8-14.3)
[2020-09-21 05:39] LABS: Chloride 109 mmol/L (98-107); Sodium 143 mmol/L (136-145)
[2020-09-21 05:51] LABS: Potassium 5.7 mmol/L (3.5-5.1)
[2020-09-21 05:58] LABS: Alanine Aminotransferase 193 U/L (16-61); Albumin 2.3 g/dL (3.4-5.0); Alkaline Phosphatase 134 U/L (45-117); Anion Gap 13 (5-15); Aspartate Aminotransferase 123 U/L (15-37); BUN/Creatinine Ratio 28.3; Calcium 7.5 mg/dL (8.5-10.1); Carbon Dioxide 21 mmol/L (21-32); GFR African American 17 mL/min; GFR Non-African American 14 mL/min; Glucose 228 mg/dL (74-106); Magnesium 2.5 mg/dL (1.6-2.6); Pre Albumin 28.7 mg/dL (20.0-40.0); Total Protein 6.9 g/dL (6.4-8.2); Triglycerides 118 mg/dL (< 150)
[2020-09-21 06:00] LABS: Blood Urea Nitrogen 127 mg/dL (7-18)
[2020-09-21] MEDS: InsuLIN REG 1unit/0.01ml Soln (100units/ml) SC SCH ×4 (06:00→18:16)
[2020-09-21] MEDS: ACCU-CHEK COMFORT CURVE STRIP VI SCH ×4 (06:00→19:25)
[2020-09-21 06:37] LABS: Phosphorus > 9.0 mg/dL (2.5-4.90)
[2020-09-21] MEDS ORDERED: SODIUM CHLORIDE 0.9% 500 ML IV ONE (09:00)
[2020-09-21] MEDS: levoFLOXacin 250MG 50 ML IV SCH (10:08)
[2020-09-21] MEDS: CHOLECALCIFEROL (VITD3) 2,000 UNIT CAP/TAB PO SCH (10:10)
[2020-09-21] MEDS: FUROSEMIDE 40 MG/4 ML VIAL IV SCH (10:11)
[2020-09-21] MEDS: DexAMETHasone SOD PHOS 10MG/1ML VIAL INJ IV SCH (10:11)
[2020-09-21] MEDS: ASPirin 81 mg TAB PO SCH (10:11)
[2020-09-21] MEDS: CLOPIDOGREL BISULFATE 75 MG TAB PO SCH (10:13)
[2020-09-21] MEDS: ASCORBIC ACID 1,000 MG TAB PO SCH (10:14)
[2020-09-21] MEDS: PIPERACILLIN-TAZOB 2.25GM 50 ML IV SCH (20:00)
[2020-09-22] VITALS (55 sets, daily range): BP systolic 10–172; BP diastolic 31–64
[2020-09-22] MEDS: PROPOFOL 100 ML IV SCH ×3 (01:45→08:14)
[2020-09-22] MEDS: fentaNYL Drip 2500mCg/250mlNS 250 ML IV SCH (01:45)
[2020-09-22] MEDS: PIPERACILLIN-TAZOB 2.25GM 50 ML IV SCH ×4 (02:00→20:00)
[2020-09-22] MEDS: Glucerna 1.2 Cal 1Liter BOTTLE GT SCH ×6 (02:00→22:00)
[2020-09-22] MEDS: SODIUM BICARBONATE 50ML VIAL 150 ML in D5W 5% 1,000 ML IV SCH ×3 (02:15→22:00)
[2020-09-22] MEDS: PHENYLEPHRINE IV 250 ML IV SCH ×3 (02:45→15:12)
[2020-09-22 03:54] LABS: Basophils # (auto) 0.1 10 ^3/uL (0-0.2); Basophils % (auto) 0.2 % (0.0-2.0); Eosinophils # (auto) 0 10 ^3/uL (0-0.8); Hemoglobin 12.4 g/dL (13.5-17.5); Lymphocytes # (auto) 0.4 10 ^3/uL (0.4-5.4); Lymphocytes % (auto) 1.3 % (10.0-50.0); Monocytes # (auto) 1.3 10 ^3/uL (0-1.3)
[2020-09-22 03:57] LABS: Hematocrit 38.1 % (41.0-53.0); Mean Corpuscular Hemoglobin 28.5 pg (28.0-32.0); Mean Corpuscular Hgb Conc. 32.5 g/dL (32.0-36.0); Mean Corpuscular Volume 87.7 fL (80.0-100.0); Monocytes % (auto) 4.3 % (0.0-12.0); Neutrophils # (auto) 29.2 10 ^3/uL (1.6-8.6); Neutrophils % (auto) 94.2 % (37.0-80.0); Platelet Count (auto) 190 10^3/uL (140-450); Red Blood Cells 4.34 10^6/uL (4.5-5.90); Red Cell Distribution Width 15.9 % (11.8-14.3)
[2020-09-22 04:11] LABS: Calcium 6.4 mg/dL (8.5-10.1)
[2020-09-22 04:16] LABS: BUN/Creatinine Ratio 27.7; Bilirubin, Total 3.3 mg/dL (0.2-1.0); Total Protein 5.9 g/dL (6.4-8.2)
[2020-09-22 04:40] LABS: Potassium 5.6 mmol/L (3.5-5.1)
[2020-09-22] MEDS: ACCU-CHEK COMFORT CURVE STRIP VI SCH ×4 (06:00→18:00)
[2020-09-22] MEDS: InsuLIN REG 1unit/0.01ml Soln (100units/ml) SC SCH ×4 (06:00→18:00)
[2020-09-22] MEDS: FUROSEMIDE 40 MG/4 ML VIAL IV SCH (10:00)
[2020-09-22] MEDS: VASOPRESSIN 50 UNITS in D5W 5% 247.5 ML IV SCH (10:05)
[2020-09-22] MEDS: DexAMETHasone SOD PHOS 10MG/1ML VIAL INJ IV SCH (10:07)
[2020-09-22] MEDS: SODIUM CHLOR 0.9% PF (SALINE LOCK) 10ML VIAL/SYR IV SCH ×2 (10:08→22:00)
[2020-09-22] MEDS: CLOPIDOGREL BISULFATE 75 MG TAB PO SCH (10:09)
[2020-09-22] MEDS: ASPirin 81 mg TAB PO SCH (10:09)
[2020-09-22] MEDS: ASCORBIC ACID 1,000 MG TAB PO SCH (10:10)
[2020-09-22] MEDS: CHOLECALCIFEROL (VITD3) 2,000 UNIT CAP/TAB PO SCH (10:11)
[2020-09-22] MEDS ORDERED: SODIUM BICARBONATE 50ML VIAL 150 ML in D5W 5% 1,000 ML IV SCH (10:30)
[2020-09-22] MEDS: DOPamine 1600MCG/ML D5W 250 ML IV SCH (10:30)
[2020-09-22] MEDS: levoFLOXacin 250MG 50 ML IV SCH (10:30)
[2020-09-22] MEDS ORDERED: EPINEPHrine HCL 250 ML IV ONE (10:38)
[2020-09-22] MEDS: EPINEPHrine HCL 250 ML IV SCH ×2 (10:45→13:41)
[2020-09-22] MEDS: SODIUM ZIRCONIUM CYCL 10 GM PAK GT SCH ×2 (14:00→22:00)
[2020-09-22] MEDS: MIDAZOLAM DRIP 50 mg/50mL 50 ML IV SCH (15:00)
[2020-09-22] MEDS ORDERED: SODIUM BICARBONATE 8.4 % INJ 50ML VIAL IV ONE (15:15)
[2020-09-22] MEDS: HYDROCORTISONE SOD SUCC 100 MG/2ML INJ VIAL IV SCH (22:00)
[2020-09-23] VITALS (56 sets, daily range): BP systolic 105–163; BP diastolic 32–62
[2020-09-23 01:09] LABS: Basophils # (auto) 0 10 ^3/uL (0-0.2); Basophils % (auto) 0.1 % (0.0-2.0); Eosinophils # (auto) 0 10 ^3/uL (0-0.8); Hematocrit 32.5 % (41.0-53.0); Hemoglobin 10.8 g/dL (13.5-17.5); Lymphocytes # (auto) 0.5 10 ^3/uL (0.4-5.4); Lymphocytes % (auto) 2.6 % (10.0-50.0); Mean Corpuscular Hemoglobin 28.9 pg (28.0-32.0); Mean Corpuscular Hgb Conc. 33.2 g/dL (32.0-36.0); Monocytes # (auto) 0.9 10 ^3/uL (0-1.3); Monocytes % (auto) 4.2 % (0.0-12.0); Neutrophils # (auto) 19.3 10 ^3/uL (1.6-8.6); Neutrophils % (auto) 93.1 % (37.0-80.0); Platelet Count (auto) 161 10^3/uL (140-450); Red Blood Cells 3.73 10^6/uL (4.5-5.90); Red Cell Distribution Width 15.7 % (11.8-14.3); White Blood Cell 20.7 10^3/uL (4.4-10.8)
[2020-09-23 01:27] LABS: Potassium 5.2 mmol/L (3.5-5.1)
[2020-09-23 01:31] LABS: INR 1.54 (0.9-1.15); Partial Thromboplastin Time 31.6 sec (23.0-31.2)
[2020-09-23 01:32] LABS: Lactic Acid w/Reflex 3.1 mmol/L (0.4-2.0)
[2020-09-23 01:36] LABS: BUN/Creatinine Ratio 22.7
[2020-09-23 01:40] LABS: Calcium 5.5 mg/dL (8.5-10.1)
[2020-09-23] MEDS: fentaNYL Drip 2500mCg/250mlNS 250 ML IV SCH ×2 (01:45→13:25)
[2020-09-23] MEDS: NOREPINEPHRINE 8 MG/250ML KIT 250 ML IV SCH (01:45)
[2020-09-23] MEDS: PIPERACILLIN-TAZOB 2.25GM 50 ML IV SCH ×4 (02:00→20:00)
[2020-09-23] MEDS: Glucerna 1.2 Cal 1Liter BOTTLE GT SCH ×6 (02:00→22:00)
[2020-09-23] MEDS ORDERED: CALCIUM GLUC 4.65meq/50ml D5AE 50 ML IV ONE (03:00)
[2020-09-23] MEDS: PHENYLEPHRINE IV 250 ML IV SCH (03:45)
[2020-09-23] MEDS ORDERED: ACETAMINOPHEN 650 MG RECT SUPP PR ONE (04:27)
[2020-09-23 04:36] LABS: Basophils # (auto) 0 10 ^3/uL (0-0.2); Basophils % (auto) 0.1 % (0.0-2.0); Eosinophils # (auto) 0 10 ^3/uL (0-0.8); Eosinophils % (auto) 0.1 % (0.0-7.0); Hematocrit 30.5 % (41.0-53.0); Hemoglobin 10.4 g/dL (13.5-17.5); Lymphocytes # (auto) 0.4 10 ^3/uL (0.4-5.4); Lymphocytes % (auto) 2.5 % (10.0-50.0); Mean Corpuscular Hemoglobin 29.5 pg (28.0-32.0); Mean Corpuscular Hgb Conc. 34.2 g/dL (32.0-36.0); Mean Corpuscular Volume 86.4 fL (80.0-100.0); Monocytes # (auto) 0.7 10 ^3/uL (0-1.3); Monocytes % (auto) 4.3 % (0.0-12.0); Neutrophils # (auto) 15.7 10 ^3/uL (1.6-8.6); Nucleated Red Blood Cells % 0.1 %; Platelet Count (auto) 151 10^3/uL (140-450); Red Blood Cells 3.54 10^6/uL (4.5-5.90); Red Cell Distribution Width 15.5 % (11.8-14.3); White Blood Cell 16.8 10^3/uL (4.4-10.8)
[2020-09-23 04:45] LABS: INR 1.52 (0.9-1.15); Partial Thromboplastin Time 31.5 sec (23.0-31.2)
[2020-09-23] MEDS ORDERED: ACETAMINOPHEN 650 MG RECT SUPP PR PRN (04:45)
[2020-09-23 04:54] LABS: Potassium 5.2 mmol/L (3.5-5.1)
[2020-09-23] MEDS ORDERED: CALCIUM GLUC 4.65 MEQ/10ML 10 ML IV ONE (04:56)
[2020-09-23 05:03] LABS: Albumin 1.5 g/dL (3.4-5.0); BUN/Creatinine Ratio 24.4; Bilirubin, Total 2.8 mg/dL (0.2-1.0); Total Protein 4.9 g/dL (6.4-8.2)
[2020-09-23 05:10] LABS: Calcium 5.4 mg/dL (8.5-10.1)
[2020-09-23] MEDS: ACCU-CHEK COMFORT CURVE STRIP VI SCH ×5 (05:28→23:24)
[2020-09-23] MEDS: InsuLIN REG 1unit/0.01ml Soln (100units/ml) SC SCH ×5 (05:28→23:26)
[2020-09-23] MEDS: HYDROCORTISONE SOD SUCC 100 MG/2ML INJ VIAL IV SCH (06:00)
[2020-09-23] MEDS: SODIUM ZIRCONIUM CYCL 10 GM PAK GT SCH (06:00)
[2020-09-23] MEDS: VASOPRESSIN 50 UNITS in D5W 5% 247.5 ML IV SCH (08:45)
[2020-09-23] MEDS: levoFLOXacin 250MG 50 ML IV SCH (09:07)
[2020-09-23] MEDS: CLOPIDOGREL BISULFATE 75 MG TAB PO SCH ×2 (09:13→10:00)
[2020-09-23] MEDS: FUROSEMIDE 40 MG/4 ML VIAL IV SCH (09:13)
[2020-09-23] MEDS: SODIUM CHLOR 0.9% PF (SALINE LOCK) 10ML VIAL/SYR IV SCH ×2 (09:13→22:00)
[2020-09-23] MEDS: CHOLECALCIFEROL (VITD3) 2,000 UNIT CAP/TAB PO SCH (09:14)
[2020-09-23] MEDS: ASCORBIC ACID 1,000 MG TAB PO SCH (09:14)
[2020-09-23] MEDS: ASPirin 81 mg TAB PO SCH ×2 (09:14→10:00)
[2020-09-23] MEDS ORDERED: DexAMETHasone SOD PHOS 10MG/1ML VIAL INJ IV SCH (10:00)
[2020-09-23] MEDS: DOPamine 1600MCG/ML D5W 250 ML IV SCH (10:30)
[2020-09-23] MEDS: SODIUM BICARBONATE 50ML VIAL 150 ML in D5W 5% 1,000 ML IV SCH ×2 (10:56→18:25)
[2020-09-23] MEDS: PHENYLEPHRINE INJ 40 MG in SODIUM CHL 0.9% 250 ML IV SCH (14:00)
[2020-09-23] MEDS ORDERED: PHENYLEPHRINE IV 250 ML IV ONE ×2 (14:08→23:04)
[2020-09-23] MEDS: INSULIN LANTUS (GLARGINE) 1 /0.01ml (100units/ml) SC SCH (22:00)
[2020-09-23] MEDS ORDERED: PHENYLEPHRINE HCL 10 MG/ML VL ONE (23:04)
[2020-09-24] VITALS (48 sets, daily range): BP systolic 70–158; BP diastolic 32–75
[2020-09-24] MEDS: fentaNYL Drip 2500mCg/250mlNS 250 ML IV SCH (01:45)
[2020-09-24] MEDS: PROPOFOL 100 ML IV SCH (01:45)
[2020-09-24] MEDS: Glucerna 1.2 Cal 1Liter BOTTLE GT SCH ×6 (02:00→22:00)
[2020-09-24] MEDS: PIPERACILLIN-TAZOB 2.25GM 50 ML IV SCH ×4 (02:00→20:00)
[2020-09-24] MEDS ORDERED: PHENYLEPHRINE HCL 10 MG/ML VL ONE ×2 (02:11→06:33)
[2020-09-24] MEDS ORDERED: PHENYLEPHRINE IV 250 ML IV ONE ×2 (02:11→06:34)
[2020-09-24] MEDS ORDERED: SODIUM BICARBONATE 8.4 % INJ 50ML VIAL IV ONE ×2 (06:00→22:59)
[2020-09-24] MEDS: InsuLIN REG 1unit/0.01ml Soln (100units/ml) SC SCH ×3 (06:17→17:45)
[2020-09-24] MEDS: ACCU-CHEK COMFORT CURVE STRIP VI SCH ×3 (06:17→17:45)
[2020-09-24 06:20] LABS: Basophils # (auto) 0 10 ^3/uL (0-0.2); Basophils % (auto) 0.2 % (0.0-2.0); Eosinophils # (auto) 0 10 ^3/uL (0-0.8); Eosinophils % (auto) 0.1 % (0.0-7.0); Hematocrit 28.4 % (41.0-53.0); Hemoglobin 9.8 g/dL (13.5-17.5); Lymphocytes # (auto) 0.2 10 ^3/uL (0.4-5.4); Lymphocytes % (auto) 1.4 % (10.0-50.0); Mean Corpuscular Hemoglobin 29.4 pg (28.0-32.0); Mean Corpuscular Hgb Conc. 34.5 g/dL (32.0-36.0); Mean Corpuscular Volume 85.2 fL (80.0-100.0); Monocytes # (auto) 0.3 10 ^3/uL (0-1.3); Monocytes % (auto) 1.8 % (0.0-12.0); Neutrophils # (auto) 14.6 10 ^3/uL (1.6-8.6); Neutrophils % (auto) 96.5 % (37.0-80.0); Platelet Count (auto) 127 10^3/uL (140-450); Red Blood Cells 3.34 10^6/uL (4.5-5.90); Red Cell Distribution Width 15.7 % (11.8-14.3); White Blood Cell 15.2 10^3/uL (4.4-10.8)
[2020-09-24 06:22] LABS: BUN/Creatinine Ratio 25.6; Magnesium 2.6 mg/dL (1.6-2.6); Potassium 4.5 mmol/L (3.5-5.1)
[2020-09-24 06:29] LABS: Calcium 5.3 mg/dL (8.5-10.1)
[2020-09-24] MEDS: MIDAZOLAM DRIP 50 mg/50mL 50 ML IV SCH ×2 (08:08→13:00)
[2020-09-24] MEDS: NOREPINEPHRINE 8 MG/250ML KIT 250 ML IV SCH (08:10)
[2020-09-24] MEDS: CHOLECALCIFEROL (VITD3) 2,000 UNIT CAP/TAB PO SCH (08:10)
[2020-09-24] MEDS: SODIUM CHLOR 0.9% PF (SALINE LOCK) 10ML VIAL/SYR IV SCH ×2 (08:10→22:13)
[2020-09-24] MEDS: ASCORBIC ACID 1,000 MG TAB PO SCH (08:10)
[2020-09-24] MEDS: VASOPRESSIN 50 UNITS in D5W 5% 247.5 ML IV SCH (08:45)
[2020-09-24] MEDS ORDERED: CALCIUM GLUC 4.65meq/50ml D5AE 50 ML IV ONE (09:00)
[2020-09-24] MEDS: SODIUM BICARBONATE 50ML VIAL 150 ML in D5W 5% 1,000 ML IV SCH ×3 (09:30→15:37)
[2020-09-24] MEDS: CLOPIDOGREL BISULFATE 75 MG TAB PO SCH (10:00)
[2020-09-24] MEDS: ASPirin 81 mg TAB PO SCH (10:00)
[2020-09-24] MEDS: PHENYLEPHRINE INJ 40 MG in SODIUM CHL 0.9% 250 ML IV SCH ×2 (10:06→20:40)
[2020-09-24] MEDS: levoFLOXacin 250MG 50 ML IV SCH (10:07)
[2020-09-24] MEDS: DOPamine 1600MCG/ML D5W 250 ML IV SCH (10:08)
[2020-09-24] MEDS: EPINEPHrine HCL 250 ML IV SCH (10:08)
[2020-09-24] MEDS ORDERED: HEPARIN 1,000 UNITS/ml 1ML VIAL ONE (16:39)
[2020-09-24] MEDS ORDERED: HEPARIN SODIUM (PORCINE) 5000 UNITS/ML 1ML VIAL ONE (17:14)
[2020-09-24] MEDS: INSULIN LANTUS (GLARGINE) 1 /0.01ml (100units/ml) SC SCH (22:00)
[2020-09-24] MEDS: METOCLOPRAMIDE HCL 5MG/ml INJ 2ml VIAL IV SCH (22:00)
[2020-09-25] VITALS (51 sets, daily range): BP systolic 97–204; BP diastolic 48–92
[2020-09-25] MEDS: fentaNYL Drip 2500mCg/250mlNS 250 ML IV SCH (01:45)
[2020-09-25] MEDS: PROPOFOL 100 ML IV SCH (01:45)
[2020-09-25] MEDS: Glucerna 1.2 Cal 1Liter BOTTLE GT SCH ×6 (02:00→22:00)
[2020-09-25] MEDS: PIPERACILLIN-TAZOB 2.25GM 50 ML IV SCH ×4 (02:00→20:31)
[2020-09-25 05:05] LABS: Basophils # (auto) 0 10 ^3/uL (0-0.2); Eosinophils # (auto) 0 10 ^3/uL (0-0.8); Hematocrit 24.6 % (41.0-53.0); Hemoglobin 8.7 g/dL (13.5-17.5); Lymphocytes # (auto) 0.3 10 ^3/uL (0.4-5.4); Lymphocytes % (auto) 1.8 % (10.0-50.0); Mean Corpuscular Hemoglobin 29.6 pg (28.0-32.0); Mean Corpuscular Hgb Conc. 35.4 g/dL (32.0-36.0); Mean Corpuscular Volume 83.5 fL (80.0-100.0); Monocytes # (auto) 0.6 10 ^3/uL (0-1.3); Monocytes % (auto) 4.3 % (0.0-12.0); Neutrophils # (auto) 13.5 10 ^3/uL (1.6-8.6); Neutrophils % (auto) 93.9 % (37.0-80.0); Platelet Count (auto) 121 10^3/uL (140-450); Red Blood Cells 2.95 10^6/uL (4.5-5.90); Red Cell Distribution Width 15.7 % (11.8-14.3); White Blood Cell 14.4 10^3/uL (4.4-10.8)
[2020-09-25 05:29] LABS: INR 1.85 (0.9-1.15); Partial Thromboplastin Time 36.9 sec (23.0-31.2)
[2020-09-25 05:31] LABS: Albumin 1.3 g/dL (3.4-5.0); Potassium 3.9 mmol/L (3.5-5.1)
[2020-09-25 05:36] LABS: Total Protein 5.1 g/dL (6.4-8.2)
[2020-09-25] MEDS: METOCLOPRAMIDE HCL 5MG/ml INJ 2ml VIAL IV SCH ×3 (06:19→22:00)
[2020-09-25] MEDS: InsuLIN REG 1unit/0.01ml Soln (100units/ml) SC SCH ×4 (06:19→18:32)
[2020-09-25] MEDS: ACCU-CHEK COMFORT CURVE STRIP VI SCH ×4 (06:20→18:00)
[2020-09-25 06:29] LABS: BUN/Creatinine Ratio 24.6
[2020-09-25 06:32] LABS: Calcium 5.3 mg/dL (8.5-10.1)
[2020-09-25] MEDS ORDERED: SODIUM CHL 0.9% 1000 ML BAG XX ONE (07:00)
[2020-09-25] MEDS: SODIUM BICARBONATE 50ML VIAL 150 ML in D5W 5% 1,000 ML IV SCH ×4 (07:40→23:57)
[2020-09-25] MEDS: VASOPRESSIN 50 UNITS in D5W 5% 247.5 ML IV SCH (08:45)
[2020-09-25] MEDS: levoFLOXacin 250MG 50 ML IV SCH (09:42)
[2020-09-25] MEDS: SODIUM CHLOR 0.9% PF (SALINE LOCK) 10ML VIAL/SYR IV SCH ×2 (09:42→22:00)
[2020-09-25] MEDS: ASPirin 81 mg TAB PO SCH (09:42)
[2020-09-25] MEDS: CLOPIDOGREL BISULFATE 75 MG TAB PO SCH (09:43)
[2020-09-25] MEDS: CHOLECALCIFEROL (VITD3) 2,000 UNIT CAP/TAB PO SCH (09:43)
[2020-09-25] MEDS: ASCORBIC ACID 1,000 MG TAB PO SCH (09:43)
[2020-09-25] MEDS: EPINEPHrine HCL 250 ML IV SCH (10:45)
[2020-09-25] MEDS: MIDAZOLAM DRIP 50 mg/50mL 50 ML IV SCH ×5 (11:08→20:44)
[2020-09-25] MEDS: NOREPINEPHRINE 8 MG/250ML KIT 250 ML IV SCH ×2 (12:21→18:59)
[2020-09-25] MEDS: PHENYLEPHRINE INJ 40 MG in SODIUM CHL 0.9% 250 ML IV SCH (13:20)
[2020-09-25] MEDS ORDERED: ALBUMIN 25% 100 ML IV ONE ×2 (15:55→16:00)
[2020-09-25] MEDS ORDERED: EPOETIN ALFA 10,000 UNIT/1 ML VIAL SC ONE (21:00)
[2020-09-25] MEDS: INSULIN LANTUS (GLARGINE) 1 /0.01ml (100units/ml) SC SCH (22:00)
[2020-09-26] VITALS (69 sets, daily range): BP systolic 75–174; BP diastolic 39–69
[2020-09-26] MEDS: ACCU-CHEK COMFORT CURVE STRIP VI SCH ×4 (00:29→18:02)
[2020-09-26] MEDS: fentaNYL Drip 2500mCg/250mlNS 250 ML IV SCH (01:45)
[2020-09-26] MEDS: PROPOFOL 100 ML IV SCH (01:45)
[2020-09-26] MEDS: Glucerna 1.2 Cal 1Liter BOTTLE GT SCH ×3 (02:00→21:33)
[2020-09-26] MEDS: PIPERACILLIN-TAZOB 2.25GM 50 ML IV SCH ×4 (02:29→19:54)
[2020-09-26 05:34] LABS: Basophils # (auto) 0 10 ^3/uL (0-0.2); Basophils % (auto) 0.1 % (0.0-2.0); Eosinophils # (auto) 0 10 ^3/uL (0-0.8); Eosinophils % (auto) 0.5 % (0.0-7.0); Lymphocytes # (auto) 0.3 10 ^3/uL (0.4-5.4); Mean Corpuscular Hemoglobin 29.5 pg (28.0-32.0)
[2020-09-26 05:39] LABS: Hematocrit 20.3 % (41.0-53.0); Hemoglobin 7.1 g/dL (13.5-17.5); Mean Corpuscular Hgb Conc. 35.1 g/dL (32.0-36.0); Monocytes # (auto) 0.1 10 ^3/uL (0-1.3); Monocytes % (auto) 1.9 % (0.0-12.0); Neutrophils # (auto) 7.4 10 ^3/uL (1.6-8.6); Neutrophils % (auto) 93.5 % (37.0-80.0); Nucleated Red Blood Cells % 0.1 %; Platelet Count (auto) 101 10^3/uL (140-450); Red Blood Cells 2.42 10^6/uL (4.5-5.90); Red Cell Distribution Width 15.6 % (11.8-14.3); White Blood Cell 7.9 10^3/uL (4.4-10.8)
[2020-09-26] MEDS: InsuLIN REG 1unit/0.01ml Soln (100units/ml) SC SCH ×3 (05:51→18:00)
[2020-09-26 05:52] LABS: Potassium 3.5 mmol/L (3.5-5.1)
[2020-09-26] MEDS: MIDAZOLAM DRIP 50 mg/50mL 50 ML IV SCH ×4 (05:53→18:56)
[2020-09-26 05:59] LABS: BUN/Creatinine Ratio 21.7
[2020-09-26] MEDS: METOCLOPRAMIDE HCL 5MG/ml INJ 2ml VIAL IV SCH ×3 (06:00→21:34)
[2020-09-26 07:02] LABS: Calcium 5.5 mg/dL (8.5-10.1)
[2020-09-26] MEDS: SODIUM BICARBONATE 50ML VIAL 150 ML in D5W 5% 1,000 ML IV SCH (08:24)
[2020-09-26] MEDS: NOREPINEPHRINE 8 MG/250ML KIT 250 ML IV SCH ×2 (08:26→17:45)
[2020-09-26] MEDS: VASOPRESSIN 50 UNITS in D5W 5% 247.5 ML IV SCH (08:45)
[2020-09-26] MEDS: CHOLECALCIFEROL (VITD3) 2,000 UNIT CAP/TAB PO SCH (10:00)
[2020-09-26] MEDS: SODIUM CHLOR 0.9% PF (SALINE LOCK) 10ML VIAL/SYR IV SCH ×2 (10:01→21:34)
[2020-09-26] MEDS: levoFLOXacin 250MG 50 ML IV SCH (10:01)
[2020-09-26] MEDS: DOPamine 1600MCG/ML D5W 250 ML IV SCH (10:01)
[2020-09-26] MEDS: ASPirin 81 mg TAB PO SCH (10:02)
[2020-09-26] MEDS: ASCORBIC ACID 1,000 MG TAB PO SCH (10:02)
[2020-09-26] MEDS: CLOPIDOGREL BISULFATE 75 MG TAB PO SCH (10:02)
[2020-09-26] MEDS: EPINEPHrine HCL 250 ML IV SCH (10:45)
[2020-09-26] MEDS: POTASSIUM CHL 20MEQ/100ML 100 ML IV SCH ×2 (16:10→18:01)
[2020-09-26] MEDS: INSULIN LANTUS (GLARGINE) 1 /0.01ml (100units/ml) SC SCH (21:35)
[2020-09-26] MEDS: ACETAMINOPHEN 500 MG TAB PO PRN (21:44)
[2020-09-26] MEDS: PHENYLEPHRINE INJ 40 MG in SODIUM CHL 0.9% 250 ML IV SCH (22:40)
[2020-09-27] VITALS (76 sets, daily range): BP systolic 83–173; BP diastolic 41–78
[2020-09-27] MEDS: ACCU-CHEK COMFORT CURVE STRIP VI SCH ×5 (00:35→23:43)
[2020-09-27] MEDS: InsuLIN REG 1unit/0.01ml Soln (100units/ml) SC SCH ×5 (00:36→23:43)
[2020-09-27] MEDS: fentaNYL Drip 2500mCg/250mlNS 250 ML IV SCH (01:45)
[2020-09-27] MEDS: PROPOFOL 100 ML IV SCH (01:45)
[2020-09-27] MEDS: Glucerna 1.2 Cal 1Liter BOTTLE GT SCH ×3 (02:00→21:18)
[2020-09-27] MEDS: PIPERACILLIN-TAZOB 2.25GM 50 ML IV SCH ×3 (02:26→13:38)
[2020-09-27] MEDS: MIDAZOLAM DRIP 50 mg/50mL 50 ML IV SCH ×4 (02:27→23:42)
[2020-09-27] MEDS: METOCLOPRAMIDE HCL 5MG/ml INJ 2ml VIAL IV SCH ×3 (05:31→21:20)
[2020-09-27 06:09] LABS: Basophils # (auto) 0 10 ^3/uL (0-0.2); Basophils % (auto) 0.1 % (0.0-2.0); Eosinophils # (auto) 0.1 10 ^3/uL (0-0.8); Hemoglobin 7.9 g/dL (13.5-17.5); Lymphocytes # (auto) 0.6 10 ^3/uL (0.4-5.4); Platelet Count (auto) 143 10^3/uL (140-450); White Blood Cell 13.8 10^3/uL (4.4-10.8)
[2020-09-27 06:11] LABS: Eosinophils % (auto) 0.7 % (0.0-7.0); Hematocrit 23.1 % (41.0-53.0); Lymphocytes % (auto) 4.6 % (10.0-50.0); Mean Corpuscular Hemoglobin 29.2 pg (28.0-32.0); Mean Corpuscular Hgb Conc. 34.1 g/dL (32.0-36.0); Mean Corpuscular Volume 85.8 fL (80.0-100.0); Monocytes # (auto) 0.4 10 ^3/uL (0-1.3); Monocytes % (auto) 2.8 % (0.0-12.0); Neutrophils # (auto) 12.6 10 ^3/uL (1.6-8.6); Neutrophils % (auto) 91.8 % (37.0-80.0); Nucleated Red Blood Cells % 0.5 %; Red Blood Cells 2.69 10^6/uL (4.5-5.90); Red Cell Distribution Width 15.7 % (11.8-14.3)
[2020-09-27 06:24] LABS: Albumin 1.3 g/dL (3.4-5.0)
[2020-09-27 06:33] LABS: BUN/Creatinine Ratio 21.8; Bilirubin, Total 1.8 mg/dL (0.2-1.0); CRP High Sensitivity 14.3 mg/dL (< 0.3); Total Protein 5.3 g/dL (6.4-8.2)
[2020-09-27 06:57] LABS: INR 4.14 (0.9-1.15)
[2020-09-27] MEDS ORDERED: SODIUM CHL 0.9% 1000 ML BAG XX ONE (07:00)
[2020-09-27 07:53] LABS: Calcium 5.3 mg/dL (8.5-10.1)
[2020-09-27] MEDS: VASOPRESSIN 50 UNITS in D5W 5% 247.5 ML IV SCH (08:25)
[2020-09-27] MEDS: levoFLOXacin 250MG 50 ML IV SCH (09:52)
[2020-09-27] MEDS: SODIUM CHLOR 0.9% PF (SALINE LOCK) 10ML VIAL/SYR IV SCH ×2 (09:52→21:18)
[2020-09-27] MEDS: CLOPIDOGREL BISULFATE 75 MG TAB PO SCH (09:52)
[2020-09-27] MEDS: ASPirin 81 mg TAB PO SCH (09:52)
[2020-09-27] MEDS: ASCORBIC ACID 1,000 MG TAB PO SCH (09:53)
[2020-09-27] MEDS: CHOLECALCIFEROL (VITD3) 2,000 UNIT CAP/TAB PO SCH (09:53)
[2020-09-27] MEDS: DOPamine 1600MCG/ML D5W 250 ML IV SCH ×2 (10:30→11:05)
[2020-09-27] MEDS: EPINEPHrine HCL 250 ML IV SCH (10:45)
[2020-09-27] MEDS: NOREPINEPHRINE 8 MG/250ML KIT 250 ML IV SCH ×3 (11:06→22:12)
[2020-09-27] MEDS: ALBUMIN 25% 100 ML IV PRN ×2 (11:51→11:53)
[2020-09-27] MEDS ORDERED: CALCIUM GLUC 4.65meq/50ml D5AE 50 ML IV ONE (14:00)
[2020-09-27] MEDS: PHENYLEPHRINE INJ 40 MG in SODIUM CHL 0.9% 250 ML IV SCH (15:20)
[2020-09-27] MEDS ORDERED: phytonadione 10 MG in SODIUM CHL 0.9% 50 ML IV ONE (19:30)
[2020-09-27] MEDS ORDERED: EPOETIN ALFA 10,000 UNIT/1 ML VIAL SC ONE (21:00)
[2020-09-27] MEDS: INSULIN LANTUS (GLARGINE) 1 /0.01ml (100units/ml) SC SCH (21:19)
[2020-09-28] VITALS (112 sets, daily range): BP systolic 75–168; BP diastolic 46–78
[2020-09-28] MEDS: fentaNYL Drip 2500mCg/250mlNS 250 ML IV SCH (01:45)
[2020-09-28] MEDS: PROPOFOL 100 ML IV SCH (01:45)
[2020-09-28] MEDS: Glucerna 1.2 Cal 1Liter BOTTLE GT SCH ×6 (02:00→21:33)
[2020-09-28] MEDS: MIDAZOLAM DRIP 50 mg/50mL 50 ML IV SCH (05:26)
[2020-09-28] MEDS: InsuLIN REG 1unit/0.01ml Soln (100units/ml) SC SCH ×3 (06:00→18:00)
[2020-09-28] MEDS: METOCLOPRAMIDE HCL 5MG/ml INJ 2ml VIAL IV SCH ×3 (06:02→21:34)
[2020-09-28] MEDS: ACCU-CHEK COMFORT CURVE STRIP VI SCH ×3 (06:03→18:00)
[2020-09-28 07:04] LABS: Mean Corpuscular Hemoglobin 29.1 pg (28.0-32.0); Mean Corpuscular Hgb Conc. 33.2 g/dL (32.0-36.0); Mean Corpuscular Volume 87.5 fL (80.0-100.0); Platelet Count (auto) 161 10^3/uL (140-450); Red Blood Cells 2.29 10^6/uL (4.5-5.90); Red Cell Distribution Width 15.9 % (11.8-14.3); White Blood Cell 13.3 10^3/uL (4.4-10.8)
[2020-09-28 07:05] LABS: INR 1.4 (0.9-1.15); Partial Thromboplastin Time 31.9 sec (23.0-31.2)
[2020-09-28 07:12] LABS: Hemoglobin 6.7 g/dL (13.5-17.5)
[2020-09-28 07:13] LABS: Basophils % (manual) 0 (0.0-2.0); Blast Cells 0; Metamyelocytes % 0; Promyelocytes % 0; Reactive Lymphocytes 0
[2020-09-28 07:17] LABS: Albumin 1.9 g/dL (3.4-5.0); BUN/Creatinine Ratio 20.7; Calcium 6.2 mg/dL (8.5-10.1)
[2020-09-28 07:23] LABS: Bilirubin, Total 1.9 mg/dL (0.2-1.0); Total Protein 5.4 g/dL (6.4-8.2)
[2020-09-28] MEDS: PHENYLEPHRINE INJ 40 MG in SODIUM CHL 0.9% 250 ML IV SCH ×2 (08:00→17:20)
[2020-09-28] MEDS: CLOPIDOGREL BISULFATE 75 MG TAB PO SCH (08:44)
[2020-09-28] MEDS: VASOPRESSIN 50 UNITS in D5W 5% 247.5 ML IV SCH (08:45)
[2020-09-28] MEDS ORDERED: ASPirin 81 mg TAB PO SCH (10:00)
[2020-09-28] MEDS: SODIUM CHLOR 0.9% PF (SALINE LOCK) 10ML VIAL/SYR IV SCH ×2 (10:00→21:34)
[2020-09-28] MEDS ORDERED: FAMOTIDINE (10MG/ML) 2ML VL IV SCH (10:00)
[2020-09-28 10:16] LABS: Band Neutrophils % (manual) 9; Eosinophils % (manual) 6 (0-7); Lymphocytes % (manual) 4 (10.0-50.0); Monocytes % (manual) 2 (0-12); Myelocytes % 1
[2020-09-28] MEDS: EPINEPHrine HCL 250 ML IV SCH (10:45)
[2020-09-28] MEDS: DOPamine 1600MCG/ML D5W 250 ML IV SCH (18:30)
[2020-09-28] MEDS: INSULIN LANTUS (GLARGINE) 1 /0.01ml (100units/ml) SC SCH (21:37)
[2020-09-29] VITALS (73 sets, daily range): BP systolic 89–139; BP diastolic 44–72
[2020-09-29] MEDS: InsuLIN REG 1unit/0.01ml Soln (100units/ml) SC SCH ×5 (00:27→23:56)
[2020-09-29] MEDS: fentaNYL Drip 2500mCg/250mlNS 250 ML IV SCH ×2 (00:45→13:04)
[2020-09-29] MEDS: PHENYLEPHRINE INJ 40 MG in SODIUM CHL 0.9% 250 ML IV SCH (00:45)
[2020-09-29] MEDS: PROPOFOL 100 ML IV SCH (01:45)
[2020-09-29] MEDS: Glucerna 1.2 Cal 1Liter BOTTLE GT SCH ×6 (01:52→21:50)
[2020-09-29] MEDS: NOREPINEPHRINE 8 MG/250ML KIT 250 ML IV SCH (01:52)
[2020-09-29] MEDS: METOCLOPRAMIDE HCL 5MG/ml INJ 2ml VIAL IV SCH ×3 (06:00→21:50)
[2020-09-29] MEDS: ACCU-CHEK COMFORT CURVE STRIP VI SCH ×5 (06:00→23:56)
[2020-09-29 06:15] LABS: Hematocrit 26.7 % (41.0-53.0); Hemoglobin 9.3 g/dL (13.5-17.5); Mean Corpuscular Hemoglobin 30.7 pg (28.0-32.0); Mean Corpuscular Hgb Conc. 34.8 g/dL (32.0-36.0); Mean Corpuscular Volume 88.3 fL (80.0-100.0); Platelet Count (auto) 172 10^3/uL (140-450); Red Blood Cells 3.02 10^6/uL (4.5-5.90); Red Cell Distribution Width 15.9 % (11.8-14.3); White Blood Cell 14.7 10^3/uL (4.4-10.8)
[2020-09-29 06:27] LABS: Potassium 3.1 mmol/L (3.5-5.1)
[2020-09-29 06:38] LABS: Albumin 1.7 g/dL (3.4-5.0); BUN/Creatinine Ratio 20.5; Bilirubin, Total 1.7 mg/dL (0.2-1.0); Total Protein 5.5 g/dL (6.4-8.2)
[2020-09-29 06:40] LABS: Basophils % (manual) 0 (0.0-2.0); Blast Cells 0; Monocytes % (manual) 0 (0-12); Promyelocytes % 0; Reactive Lymphocytes 0
[2020-09-29 07:56] LABS: Band Neutrophils % (manual) 37; Eosinophils % (manual) 3 (0-7); Lymphocytes % (manual) 3 (10.0-50.0); Metamyelocytes % 3; Myelocytes % 3
[2020-09-29] MEDS: VASOPRESSIN 50 UNITS in D5W 5% 247.5 ML IV SCH (08:45)
[2020-09-29] MEDS: SODIUM CHLOR 0.9% PF (SALINE LOCK) 10ML VIAL/SYR IV SCH ×2 (10:00→21:51)
[2020-09-29] MEDS: FAMOTIDINE (10MG/ML) 2ML VL IV SCH (10:00)
[2020-09-29] MEDS: DOPamine 1600MCG/ML D5W 250 ML IV SCH (10:30)
[2020-09-29] MEDS: EPINEPHrine HCL 250 ML IV SCH (10:45)
[2020-09-29] MEDS ORDERED: CALCIUM CHL 100MG/ML 1,000 MG in D5W 5% 100 ML IV ONE (14:30)
[2020-09-29] MEDS ORDERED: LACTATED RINGER'S 1,000 ML IV SCH (14:30)
[2020-09-29] MEDS: ACETAMINOPHEN 500 MG TAB PO PRN (17:38)
[2020-09-29] MEDS: INSULIN LANTUS (GLARGINE) 1 /0.01ml (100units/ml) SC SCH (21:52)
[2020-09-30] VITALS (72 sets, daily range): BP systolic 92–152; BP diastolic 49–95
[2020-09-30] MEDS: PROPOFOL 100 ML IV SCH (01:45)
[2020-09-30] MEDS: NOREPINEPHRINE 8 MG/250ML KIT 250 ML IV SCH ×2 (01:45→09:30)
[2020-09-30] MEDS: MIDAZOLAM DRIP 50 mg/50mL 50 ML IV SCH ×4 (01:45→16:00)
[2020-09-30] MEDS: Glucerna 1.2 Cal 1Liter BOTTLE GT SCH ×4 (02:00→14:00)
[2020-09-30 04:51] LABS: Albumin 1.6 g/dL (3.4-5.0); Calcium 6.4 mg/dL (8.5-10.1); Potassium 3.2 mmol/L (3.5-5.1)
[2020-09-30 04:52] LABS: Basophils # (auto) 0 10 ^3/uL (0-0.2); Basophils % (auto) 0.2 % (0.0-2.0); Eosinophils # (auto) 0.2 10 ^3/uL (0-0.8); Eosinophils % (auto) 1.3 % (0.0-7.0); Hematocrit 27.6 % (41.0-53.0); Hemoglobin 9.5 g/dL (13.5-17.5); Lymphocytes # (auto) 0.3 10 ^3/uL (0.4-5.4); Mean Corpuscular Hemoglobin 30.6 pg (28.0-32.0); Mean Corpuscular Hgb Conc. 34.4 g/dL (32.0-36.0); Mean Corpuscular Volume 88.9 fL (80.0-100.0); Monocytes # (auto) 0.3 10 ^3/uL (0-1.3); Monocytes % (auto) 1.4 % (0.0-12.0); Neutrophils # (auto) 16.7 10 ^3/uL (1.6-8.6); Neutrophils % (auto) 95.1 % (37.0-80.0); Nucleated Red Blood Cells % 0.2 %; Platelet Count (auto) 213 10^3/uL (140-450); Red Blood Cells 3.11 10^6/uL (4.5-5.90); Red Cell Distribution Width 16.5 % (11.8-14.3); White Blood Cell 17.6 10^3/uL (4.4-10.8)
[2020-09-30 04:55] LABS: BUN/Creatinine Ratio 20.7; Bilirubin, Total 1.8 mg/dL (0.2-1.0); Total Protein 5.6 g/dL (6.4-8.2)
[2020-09-30] MEDS: InsuLIN REG 1unit/0.01ml Soln (100units/ml) SC SCH ×3 (05:57→18:00)
[2020-09-30] MEDS: METOCLOPRAMIDE HCL 5MG/ml INJ 2ml VIAL IV SCH ×3 (05:57→21:22)
[2020-09-30] MEDS: ACCU-CHEK COMFORT CURVE STRIP VI SCH ×3 (05:58→18:00)
[2020-09-30] MEDS: VASOPRESSIN 50 UNITS in D5W 5% 247.5 ML IV SCH (08:45)
[2020-09-30] MEDS: DOPamine 1600MCG/ML D5W 250 ML IV SCH (09:30)
[2020-09-30] MEDS: PHENYLEPHRINE INJ 40 MG in SODIUM CHL 0.9% 250 ML IV SCH (10:00)
[2020-09-30] MEDS: fentaNYL Drip 2500mCg/250mlNS 250 ML IV SCH (10:00)
[2020-09-30] MEDS: FAMOTIDINE (10MG/ML) 2ML VL IV SCH (10:00)
[2020-09-30] MEDS: SODIUM CHLOR 0.9% PF (SALINE LOCK) 10ML VIAL/SYR IV SCH ×2 (10:00→21:22)
[2020-09-30] MEDS: SOD CHL 0.45% WITH 20MEQ KCL 1,000 ML IV SCH ×2 (10:30→23:50)
[2020-09-30] MEDS: EPINEPHrine HCL 250 ML IV SCH (10:45)
[2020-09-30] MEDS: ACETAMINOPHEN 500 MG TAB PO PRN (12:30)
[2020-09-30] MEDS: POTASSIUM CHL 20MEQ/100ML 100 ML IV SCH ×2 (14:30→17:00)
[2020-09-30] MEDS ORDERED: TPN PER PHARMACY 0 ML IV SCH (15:45)
[2020-09-30] MEDS ORDERED: CALCIUM GLUC 4.65meq/50ml D5AE 50 ML IV ONE (17:00)
[2020-09-30 17:20] LABS: Phosphorus 4.2 mg/dL (2.5-4.90)
[2020-09-30] MEDS: AMINO ACID INFUSION IN D10W 1,000 ML IV NR (20:00)
[2020-09-30] MEDS: INSULIN LANTUS (GLARGINE) 1 /0.01ml (100units/ml) SC SCH (21:22)
[2020-10-01] VITALS (62 sets, daily range): BP systolic 84–131; BP diastolic 45–65
[2020-10-01] MEDS: PROPOFOL 100 ML IV SCH (01:45)
[2020-10-01] MEDS: PHENYLEPHRINE INJ 40 MG in SODIUM CHL 0.9% 250 ML IV SCH ×2 (02:34→19:20)
[2020-10-01 04:47] LABS: Basophils # (auto) 0 10 ^3/uL (0-0.2); Basophils % (auto) 0.3 % (0.0-2.0); Eosinophils # (auto) 0.2 10 ^3/uL (0-0.8); Eosinophils % (auto) 1.1 % (0.0-7.0); Hematocrit 25.1 % (41.0-53.0); Hemoglobin 8.8 g/dL (13.5-17.5); Lymphocytes # (auto) 0.2 10 ^3/uL (0.4-5.4); Lymphocytes % (auto) 1.5 % (10.0-50.0); Mean Corpuscular Hemoglobin 31.4 pg (28.0-32.0); Mean Corpuscular Volume 89.8 fL (80.0-100.0); Monocytes # (auto) 0.2 10 ^3/uL (0-1.3); Monocytes % (auto) 1.1 % (0.0-12.0); Neutrophils # (auto) 13.6 10 ^3/uL (1.6-8.6); Nucleated Red Blood Cells % 0.2 %; Platelet Count (auto) 194 10^3/uL (140-450); Red Cell Distribution Width 16.9 % (11.8-14.3); White Blood Cell 14.2 10^3/uL (4.4-10.8)
[2020-10-01 05:06] LABS: Potassium 3.3 mmol/L (3.5-5.1)
[2020-10-01 05:20] LABS: Albumin 1.3 g/dL (3.4-5.0); BUN/Creatinine Ratio 22.3; Bilirubin, Total 1.4 mg/dL (0.2-1.0); Calcium 6.1 mg/dL (8.5-10.1); Magnesium 1.7 mg/dL (1.6-2.6); Phosphorus 3.9 mg/dL (2.5-4.90); Pre Albumin 6.1 mg/dL (20.0-40.0)
[2020-10-01] MEDS: METOCLOPRAMIDE HCL 5MG/ml INJ 2ml VIAL IV SCH ×3 (05:26→21:15)
[2020-10-01] MEDS: InsuLIN REG 1unit/0.01ml Soln (100units/ml) SC SCH ×4 (06:00→18:00)
[2020-10-01] MEDS: ACCU-CHEK COMFORT CURVE STRIP VI SCH ×4 (06:06→18:00)
[2020-10-01] MEDS: VASOPRESSIN 50 UNITS in D5W 5% 247.5 ML IV SCH (08:45)
[2020-10-01] MEDS: ACETAMINOPHEN 500 MG TAB PO PRN ×2 (09:00→18:30)
[2020-10-01] MEDS: FAMOTIDINE (10MG/ML) 2ML VL IV SCH (10:00)
[2020-10-01] MEDS: SODIUM CHLOR 0.9% PF (SALINE LOCK) 10ML VIAL/SYR IV SCH ×2 (10:00→21:15)
[2020-10-01] MEDS: DOPamine 1600MCG/ML D5W 250 ML IV SCH (10:30)
[2020-10-01] MEDS: EPINEPHrine HCL 250 ML IV SCH (10:45)
[2020-10-01] MEDS ORDERED: POTASSIUM CHL 20MEQ/100ML 100 ML IV ONE ×2 (11:00→15:15)
[2020-10-01] MEDS: MIDAZOLAM DRIP 50 mg/50mL 50 ML IV SCH (12:20)
[2020-10-01] MEDS: fentaNYL Drip 2500mCg/250mlNS 250 ML IV SCH (12:22)
[2020-10-01] MEDS: SOD CHL 0.45% WITH 20MEQ KCL 1,000 ML IV SCH (13:10)
[2020-10-01] MEDS: NOREPINEPHRINE 8 MG/250ML KIT 250 ML IV SCH (14:40)
[2020-10-01] MEDS: D5W/SOD CHL 0.2% 1,000 ML IV SCH (17:00)
[2020-10-01] MEDS: AMINO ACID INFUSION IN D10W 1,000 ML IV NR (19:49)
[2020-10-01] MEDS ORDERED: TPN PER PHARMACY IV NR ×10 (20:00)
[2020-10-01] MEDS: INSULIN LANTUS (GLARGINE) 1 /0.01ml (100units/ml) SC SCH (21:15)
[2020-10-02] VITALS (75 sets, daily range): BP systolic 88–137; BP diastolic 49–71
[2020-10-02] MEDS: InsuLIN REG 1unit/0.01ml Soln (100units/ml) SC SCH ×6 (00:27→23:31)
[2020-10-02] MEDS: fentaNYL Drip 2500mCg/250mlNS 250 ML IV SCH (00:32)
[2020-10-02] MEDS: PROPOFOL 100 ML IV SCH (01:34)
[2020-10-02 02:24] LABS: Basophils # (auto) 0 10 ^3/uL (0-0.2); Basophils % (auto) 0.3 % (0.0-2.0); Eosinophils # (auto) 0.2 10 ^3/uL (0-0.8); Eosinophils % (auto) 1.7 % (0.0-7.0); Hematocrit 26.6 % (41.0-53.0); Lymphocytes # (auto) 0.2 10 ^3/uL (0.4-5.4); Lymphocytes % (auto) 1.9 % (10.0-50.0); Mean Corpuscular Hemoglobin 30.8 pg (28.0-32.0); Mean Corpuscular Hgb Conc. 33.9 g/dL (32.0-36.0); Mean Corpuscular Volume 90.8 fL (80.0-100.0); Monocytes # (auto) 0.2 10 ^3/uL (0-1.3); Monocytes % (auto) 1.5 % (0.0-12.0); Neutrophils # (auto) 10.2 10 ^3/uL (1.6-8.6); Neutrophils % (auto) 94.6 % (37.0-80.0); Platelet Count (auto) 205 10^3/uL (140-450); Red Blood Cells 2.93 10^6/uL (4.5-5.90); Red Cell Distribution Width 17.3 % (11.8-14.3); White Blood Cell 10.8 10^3/uL (4.4-10.8)
[2020-10-02 03:06] LABS: Albumin 1.2 g/dL (3.4-5.0); Magnesium 1.5 mg/dL (1.6-2.6); Potassium 3.5 mmol/L (3.5-5.1)
[2020-10-02 03:13] LABS: BUN/Creatinine Ratio 22.5; Bilirubin, Total 1.2 mg/dL (0.2-1.0); Total Protein 5.2 g/dL (6.4-8.2)
[2020-10-02 03:20] LABS: Calcium 5.7 mg/dL (8.5-10.1)
[2020-10-02] MEDS: METOCLOPRAMIDE HCL 5MG/ml INJ 2ml VIAL IV SCH ×3 (05:42→20:52)
[2020-10-02] MEDS: ACCU-CHEK COMFORT CURVE STRIP VI SCH ×5 (06:08→23:32)
[2020-10-02] MEDS: VASOPRESSIN 50 UNITS in D5W 5% 247.5 ML IV SCH (07:52)
[2020-10-02] MEDS: SODIUM CHLOR 0.9% PF (SALINE LOCK) 10ML VIAL/SYR IV SCH ×2 (10:27→20:53)
[2020-10-02] MEDS: FAMOTIDINE (10MG/ML) 2ML VL IV SCH (10:27)
[2020-10-02] MEDS: DOPamine 1600MCG/ML D5W 250 ML IV SCH (10:30)
[2020-10-02] MEDS: EPINEPHrine HCL 250 ML IV SCH (10:45)
[2020-10-02] MEDS: PHENYLEPHRINE INJ 40 MG in SODIUM CHL 0.9% 250 ML IV SCH (12:00)
[2020-10-02] MEDS ORDERED: CALCIUM CHL 100MG/ML 1,000 MG in D5W 5% 100 ML IV ONE (13:00)
[2020-10-02] MEDS ORDERED: CALCIUM GLUC 4.65meq/50ml D5AE 50 ML IV ONE (14:22)
[2020-10-02] MEDS: D5W/SOD CHL 0.2% 1,000 ML IV SCH (15:05)
[2020-10-02] MEDS ORDERED: TPN PER PHARMACY IV NR ×9 (20:00)
[2020-10-02] MEDS: INSULIN LANTUS (GLARGINE) 1 /0.01ml (100units/ml) SC SCH (22:22)
[2020-10-03] VITALS (79 sets, daily range): BP systolic 90–147; BP diastolic 47–78
[2020-10-03] MEDS: PROPOFOL 100 ML IV SCH (01:45)
[2020-10-03] MEDS: fentaNYL Drip 2500mCg/250mlNS 250 ML IV SCH (01:45)
[2020-10-03] MEDS: NOREPINEPHRINE 8 MG/250ML KIT 250 ML IV SCH (01:45)
[2020-10-03] MEDS: MIDAZOLAM DRIP 50 mg/50mL 50 ML IV SCH ×2 (01:45→21:18)
[2020-10-03] MEDS: PHENYLEPHRINE INJ 40 MG in SODIUM CHL 0.9% 250 ML IV SCH ×2 (04:40→21:15)
[2020-10-03] MEDS: METOCLOPRAMIDE HCL 5MG/ml INJ 2ml VIAL IV SCH ×3 (04:57→21:17)
[2020-10-03 04:58] LABS: Basophils # (auto) 0 10 ^3/uL (0-0.2); Basophils % (auto) 0.6 % (0.0-2.0); Eosinophils # (auto) 0.2 10 ^3/uL (0-0.8); Eosinophils % (auto) 2.3 % (0.0-7.0); Hematocrit 27.4 % (41.0-53.0); Hemoglobin 9.1 g/dL (13.5-17.5); Lymphocytes # (auto) 0.4 10 ^3/uL (0.4-5.4); Lymphocytes % (auto) 5.5 % (10.0-50.0); Mean Corpuscular Hemoglobin 30.7 pg (28.0-32.0); Mean Corpuscular Hgb Conc. 33.3 g/dL (32.0-36.0); Mean Corpuscular Volume 92.2 fL (80.0-100.0); Monocytes # (auto) 0.2 10 ^3/uL (0-1.3); Monocytes % (auto) 2.2 % (0.0-12.0); Neutrophils # (auto) 7.1 10 ^3/uL (1.6-8.6); Neutrophils % (auto) 89.4 % (37.0-80.0); Nucleated Red Blood Cells % 0.2 %; Platelet Count (auto) 197 10^3/uL (140-450); Red Blood Cells 2.97 10^6/uL (4.5-5.90); Red Cell Distribution Width 17.9 % (11.8-14.3); White Blood Cell 7.9 10^3/uL (4.4-10.8)
[2020-10-03] MEDS: InsuLIN REG 1unit/0.01ml Soln (100units/ml) SC SCH ×4 (05:28→23:56)
[2020-10-03] MEDS: ACCU-CHEK COMFORT CURVE STRIP VI SCH ×4 (05:29→23:49)
[2020-10-03 05:47] LABS: Magnesium 1.7 mg/dL (1.6-2.6); Potassium 3.4 mmol/L (3.5-5.1)
[2020-10-03 05:52] LABS: BUN/Creatinine Ratio 21.8; Bilirubin, Total 1.5 mg/dL (0.2-1.0); Phosphorus 2.6 mg/dL (2.5-4.90)
[2020-10-03] MEDS: VASOPRESSIN 50 UNITS in D5W 5% 247.5 ML IV SCH (08:45)
[2020-10-03] MEDS: D5W/SOD CHL 0.2% 1,000 ML IV SCH (10:22)
[2020-10-03] MEDS: INSULIN LANTUS (GLARGINE) 1 /0.01ml (100units/ml) SC SCH ×2 (10:23→21:16)
[2020-10-03] MEDS: DOPamine 1600MCG/ML D5W 250 ML IV SCH ×2 (10:23→21:18)
[2020-10-03] MEDS: FAMOTIDINE (10MG/ML) 2ML VL IV SCH (10:23)
[2020-10-03] MEDS: SODIUM CHLOR 0.9% PF (SALINE LOCK) 10ML VIAL/SYR IV SCH ×2 (10:23→21:17)
[2020-10-03] MEDS: EPINEPHrine HCL 250 ML IV SCH (10:23)
[2020-10-03] MEDS: FREE WATER GT SCH ×4 (10:23→21:16)
[2020-10-03] MEDS ORDERED: CALCIUM GLUC 4.65meq/50ml D5AE 50 ML IV ONE (12:45)
[2020-10-03] MEDS ORDERED: CALCIUM CHL 100MG/ML 1,000 MG in D5W 5% 100 ML IV ONE (12:45)
[2020-10-03] MEDS ORDERED: POTASSIUM CHL 20MEQ/100ML 100 ML IV ONE (15:00)
[2020-10-03] MEDS ORDERED: [UNRECOGNIZED DRUG - OTHER] IV NR ×10 (20:00)
[2020-10-03] MEDS ORDERED: POTASSIUM PHOSPHATE IV NR ×10 (20:00)
[2020-10-03] MEDS ORDERED: POTASSIUM ACETATE IV NR ×10 (20:00)
[2020-10-03] MEDS ORDERED: FAT EMULSION IV NR ×10 (20:00)
[2020-10-04] VITALS (79 sets, daily range): BP systolic 88–125; BP diastolic 48–77
[2020-10-04] MEDS: PROPOFOL 100 ML IV SCH (01:45)
[2020-10-04] MEDS: FREE WATER GT SCH ×6 (03:06→21:40)
[2020-10-04] MEDS: fentaNYL Drip 2500mCg/250mlNS 250 ML IV SCH (05:53)
[2020-10-04] MEDS: NOREPINEPHRINE 8 MG/250ML KIT 250 ML IV SCH (05:54)
[2020-10-04 05:57] LABS: Basophils # (auto) 0 10 ^3/uL (0-0.2); Basophils % (auto) 0.3 % (0.0-2.0); Eosinophils # (auto) 0.1 10 ^3/uL (0-0.8); Eosinophils % (auto) 1.9 % (0.0-7.0); Hematocrit 27.9 % (41.0-53.0); Hemoglobin 9.3 g/dL (13.5-17.5); Lymphocytes # (auto) 0.3 10 ^3/uL (0.4-5.4); Lymphocytes % (auto) 6.8 % (10.0-50.0); Mean Corpuscular Hemoglobin 30.3 pg (28.0-32.0); Mean Corpuscular Hgb Conc. 33.5 g/dL (32.0-36.0); Mean Corpuscular Volume 90.5 fL (80.0-100.0); Monocytes # (auto) 0.1 10 ^3/uL (0-1.3); Monocytes % (auto) 2.3 % (0.0-12.0); Neutrophils # (auto) 3.4 10 ^3/uL (1.6-8.6); Neutrophils % (auto) 88.7 % (37.0-80.0); Nucleated Red Blood Cells % 0.1 %; Platelet Count (auto) 203 10^3/uL (140-450); Red Blood Cells 3.08 10^6/uL (4.5-5.90); Red Cell Distribution Width 17.6 % (11.8-14.3); White Blood Cell 3.8 10^3/uL (4.4-10.8)
[2020-10-04 06:18] LABS: Chloride 117 mmol/L (98-107); Sodium 148 mmol/L (136-145)
[2020-10-04] MEDS: METOCLOPRAMIDE HCL 5MG/ml INJ 2ml VIAL IV SCH ×3 (06:21→21:40)
[2020-10-04] MEDS: ACCU-CHEK COMFORT CURVE STRIP VI SCH ×4 (06:21→23:58)
[2020-10-04] MEDS: InsuLIN REG 1unit/0.01ml Soln (100units/ml) SC SCH ×4 (06:22→23:58)
[2020-10-04 06:52] LABS: Anion Gap 8 (5-15); BUN/Creatinine Ratio 21.2; Blood Urea Nitrogen 43 mg/dL (7-18); Calcium 6.3 mg/dL (8.5-10.1); Carbon Dioxide 23 mmol/L (21-32); GFR African American 42 mL/min; GFR Non-African American 35 mL/min; Glucose 195 mg/dL (74-106); Phosphorus 3.1 mg/dL (2.5-4.90)
[2020-10-04 06:53] LABS: Bilirubin, Direct 1.6 mg/dL (0-0.2); Bilirubin, Total 1.9 mg/dL (0.2-1.0); Magnesium 1.5 mg/dL (1.6-2.6); Total Protein 5.1 g/dL (6.4-8.2)
[2020-10-04 06:55] LABS: INR 1.4 (0.9-1.15); Partial Thromboplastin Time 30.8 sec (23.0-31.2)
[2020-10-04] MEDS: D5W/SOD CHL 0.2% 1,000 ML IV SCH ×2 (06:57→23:15)
[2020-10-04 07:06] LABS: Albumin 0.9 g/dL (3.4-5.0); Potassium 2.7 mmol/L (3.5-5.1)
[2020-10-04 07:30] LABS: CRP High Sensitivity > 19.0 mg/dL (< 0.3)
[2020-10-04] MEDS: INSULIN LANTUS (GLARGINE) 1 /0.01ml (100units/ml) SC SCH ×2 (10:00→22:23)
[2020-10-04] MEDS: MAGNESIUM SULFATE 1GM/100ML 100 ML IV SCH ×2 (10:00→11:21)
[2020-10-04] MEDS: SODIUM CHLOR 0.9% PF (SALINE LOCK) 10ML VIAL/SYR IV SCH ×2 (10:00→21:40)
[2020-10-04] MEDS: VASOPRESSIN 50 UNITS in D5W 5% 247.5 ML IV SCH (10:38)
[2020-10-04] MEDS: FAMOTIDINE (10MG/ML) 2ML VL IV SCH (10:39)
[2020-10-04] MEDS: EPINEPHrine HCL 250 ML IV SCH (10:42)
[2020-10-04] MEDS: MIDAZOLAM DRIP 50 mg/50mL 50 ML IV SCH ×2 (11:23→20:21)
[2020-10-04] MEDS: POTASSIUM CHL 20MEQ/100ML 100 ML IV SCH ×2 (12:00→13:30)
[2020-10-04] MEDS ORDERED: SODIUM CHLORIDE LOCK 20 ML ONE (12:36)
[2020-10-04] MEDS ORDERED: LIDOCAINE HCL 2% TOP JELLY 5ML TOP ONE (12:36)
[2020-10-04] MEDS ORDERED: EPINEPHrine HCL 1 MG/1 ML AMP ONE (12:36)
[2020-10-04] MEDS ORDERED: LIDOCAINE 2%HCL (LOCAL ANESTH.) INJ 20ML MDV ONE (12:36)
[2020-10-04] MEDS ORDERED: GLYCOPYRROLATE 0.2 MG/ML 1ML VIAL ONE (12:37)
[2020-10-04] MEDS ORDERED: ACETYLCYSTEINE 20%(200MG/ML) SOL 4ML ONE (12:59)
[2020-10-04] MEDS ORDERED: ROCURONIUM 10MG/ML 10ML VIAL IV ONE (13:15)
[2020-10-04] MEDS: PHENYLEPHRINE INJ 40 MG in SODIUM CHL 0.9% 250 ML IV SCH (13:45)
[2020-10-04] MEDS ORDERED: POTASSIUM PHOSP 22MEQ(15MMOLE) in NS 100 ML IV ONE (14:00)
[2020-10-04] MEDS ORDERED: TPN PER PHARMACY IV NR ×9 (20:00)
[2020-10-04] MEDS: DOPamine 1600MCG/ML D5W 250 ML IV SCH (20:36)
[2020-10-04 22:30] LABS: Magnesium 2.1 mg/dL (1.6-2.6)
[2020-10-04 22:33] LABS: BUN/Creatinine Ratio 22.4
[2020-10-04 22:37] LABS: Calcium 5.9 mg/dL (8.5-10.1)
[2020-10-05] VITALS (68 sets, daily range): BP systolic 73–147; BP diastolic 36–78
[2020-10-05] MEDS: NOREPINEPHRINE 8 MG/250ML KIT 250 ML IV SCH ×4 (01:45→21:10)
[2020-10-05] MEDS: fentaNYL Drip 2500mCg/250mlNS 250 ML IV SCH ×2 (01:45→17:03)
[2020-10-05] MEDS: PROPOFOL 100 ML IV SCH (01:45)
[2020-10-05] MEDS: FREE WATER GT SCH ×6 (02:00→21:27)
[2020-10-05] MEDS: MIDAZOLAM DRIP 50 mg/50mL 50 ML IV SCH ×5 (02:31→21:59)
[2020-10-05 04:50] LABS: Basophils # (auto) 0 10 ^3/uL (0-0.2); Basophils % (auto) 0.3 % (0.0-2.0); Eosinophils # (auto) 0.1 10 ^3/uL (0-0.8); Eosinophils % (auto) 1.9 % (0.0-7.0); Hematocrit 26.9 % (41.0-53.0); Hemoglobin 9.1 g/dL (13.5-17.5); Lymphocytes # (auto) 0.3 10 ^3/uL (0.4-5.4); Lymphocytes % (auto) 8.3 % (10.0-50.0); Mean Corpuscular Hemoglobin 30.3 pg (28.0-32.0); Mean Corpuscular Hgb Conc. 33.8 g/dL (32.0-36.0); Mean Corpuscular Volume 89.6 fL (80.0-100.0); Monocytes # (auto) 0.1 10 ^3/uL (0-1.3); Neutrophils # (auto) 3.5 10 ^3/uL (1.6-8.6); Neutrophils % (auto) 87.5 % (37.0-80.0); Nucleated Red Blood Cells % 0.8 %; Platelet Count (auto) 181 10^3/uL (140-450); Red Cell Distribution Width 17.5 % (11.8-14.3)
[2020-10-05 05:07] LABS: Anion Gap 7 (5-15); Blood Urea Nitrogen 54 mg/dL (7-18); Calcium 6.2 mg/dL (8.5-10.1); Carbon Dioxide 23 mmol/L (21-32); Chloride 112 mmol/L (98-107); Glucose 156 mg/dL (74-106); Magnesium 2.2 mg/dL (1.6-2.6); Potassium 4.3 mmol/L (3.5-5.1); Sodium 142 mmol/L (136-145)
[2020-10-05] MEDS: DEXTROSE (50%) 50ML SYRG IV PRN (05:15)
[2020-10-05 05:16] LABS: Alanine Aminotransferase 29 U/L (16-61); Alkaline Phosphatase 73 U/L (45-117); Aspartate Aminotransferase 53 U/L (15-37); BUN/Creatinine Ratio 21.4; Bilirubin, Total 2.5 mg/dL (0.2-1.0); GFR African American 33 mL/min; GFR Non-African American 27 mL/min; Phosphorus 4.9 mg/dL (2.5-4.90); Total Protein 4.9 g/dL (6.4-8.2)
[2020-10-05] MEDS: METOCLOPRAMIDE HCL 5MG/ml INJ 2ml VIAL IV SCH ×3 (06:02→21:27)
[2020-10-05] MEDS: InsuLIN REG 1unit/0.01ml Soln (100units/ml) SC SCH ×4 (06:03→18:15)
[2020-10-05] MEDS: ACCU-CHEK COMFORT CURVE STRIP VI SCH ×3 (06:03→18:12)
[2020-10-05 06:37] LABS: INR 1.29 (0.9-1.15); Partial Thromboplastin Time 34.5 sec (23.0-31.2)
[2020-10-05] MEDS: PHENYLEPHRINE INJ 40 MG in SODIUM CHL 0.9% 250 ML IV SCH ×2 (06:40→17:02)
[2020-10-05 07:00] LABS: CRP High Sensitivity > 19.0 mg/dL (< 0.3)
[2020-10-05 07:02] LABS: Albumin 0.7 g/dL (3.4-5.0)
[2020-10-05] MEDS: VASOPRESSIN 50 UNITS in D5W 5% 247.5 ML IV SCH (08:45)
[2020-10-05] MEDS: INSULIN LANTUS (GLARGINE) 1 /0.01ml (100units/ml) SC SCH ×2 (10:00→21:28)
[2020-10-05] MEDS: EPINEPHrine HCL 250 ML IV SCH (10:45)
[2020-10-05] MEDS ORDERED: FUROSEMIDE 100 MG/10ML VIAL IV ONE (11:00)
[2020-10-05] MEDS: FAMOTIDINE (10MG/ML) 2ML VL IV SCH (11:32)
[2020-10-05] MEDS: SODIUM CHLOR 0.9% PF (SALINE LOCK) 10ML VIAL/SYR IV SCH ×2 (11:33→21:28)
[2020-10-05] MEDS ORDERED: SODIUM CHLORIDE 0.9% 2,000 ML IV ONE (14:30)
[2020-10-05] MEDS: D5W/SOD CHL 0.2% 1,000 ML IV SCH (15:54)
[2020-10-05] MEDS ORDERED: TPN PER PHARMACY IV NR ×7 (20:00)
[2020-10-06] VITALS (64 sets, daily range): BP systolic 66–144; BP diastolic 28–76
[2020-10-06] MEDS: DOPamine 1600MCG/ML D5W 250 ML IV SCH (00:49)
[2020-10-06] MEDS: NOREPINEPHRINE 8 MG/250ML KIT 250 ML IV SCH ×6 (01:03→23:56)
[2020-10-06] MEDS: PROPOFOL 100 ML IV SCH (01:45)
[2020-10-06] MEDS: FREE WATER GT SCH ×6 (02:00→22:06)
[2020-10-06] MEDS: MIDAZOLAM DRIP 50 mg/50mL 50 ML IV SCH ×3 (02:13→20:49)
[2020-10-06 04:34] LABS: Basophils # (auto) 0 10 ^3/uL (0-0.2); Eosinophils # (auto) 0.1 10 ^3/uL (0-0.8); Hematocrit 24.5 % (41.0-53.0); Hemoglobin 8.2 g/dL (13.5-17.5); Monocytes # (auto) 0.1 10 ^3/uL (0-1.3)
[2020-10-06 04:36] LABS: Basophils % (auto) 0.3 % (0.0-2.0); Eosinophils % (auto) 1.7 % (0.0-7.0); Lymphocytes # (auto) 0.4 10 ^3/uL (0.4-5.4); Lymphocytes % (auto) 7.2 % (10.0-50.0); Mean Corpuscular Hemoglobin 30.6 pg (28.0-32.0); Mean Corpuscular Hgb Conc. 33.5 g/dL (32.0-36.0); Mean Corpuscular Volume 91.3 fL (80.0-100.0); Monocytes % (auto) 1.4 % (0.0-12.0); Neutrophils # (auto) 5.3 10 ^3/uL (1.6-8.6); Neutrophils % (auto) 89.4 % (37.0-80.0); Nucleated Red Blood Cells % 1.2 %; Platelet Count (auto) 156 10^3/uL (140-450); Red Blood Cells 2.69 10^6/uL (4.5-5.90); Red Cell Distribution Width 18.5 % (11.8-14.3); White Blood Cell 5.9 10^3/uL (4.4-10.8)
[2020-10-06] MEDS: PHENYLEPHRINE INJ 40 MG in SODIUM CHL 0.9% 250 ML IV SCH ×3 (04:43→19:08)
[2020-10-06] MEDS: fentaNYL Drip 2500mCg/250mlNS 250 ML IV SCH ×2 (05:17→16:00)
[2020-10-06 05:23] LABS: Anion Gap 12 (5-15); Blood Urea Nitrogen 62 mg/dL (7-18); Carbon Dioxide 17 mmol/L (21-32); Chloride 109 mmol/L (98-107); Glucose 128 mg/dL (74-106); Magnesium 2.4 mg/dL (1.6-2.6); Potassium 3.8 mmol/L (3.5-5.1); Sodium 138 mmol/L (136-145)
[2020-10-06 05:29] LABS: Alanine Aminotransferase 26 U/L (16-61); Alkaline Phosphatase 77 U/L (45-117); Aspartate Aminotransferase 34 U/L (15-37); Bilirubin, Total 2.8 mg/dL (0.2-1.0); GFR African American 26 mL/min; GFR Non-African American 22 mL/min; Total Protein 4.6 g/dL (6.4-8.2)
[2020-10-06 05:52] LABS: Albumin 0.7 g/dL (3.4-5.0); BUN/Creatinine Ratio 20.1; CRP High Sensitivity > 19.0 mg/dL (< 0.3)
[2020-10-06] MEDS: InsuLIN REG 1unit/0.01ml Soln (100units/ml) SC SCH ×4 (06:00→17:09)
[2020-10-06] MEDS: ACCU-CHEK COMFORT CURVE STRIP VI SCH ×4 (06:23→17:09)
[2020-10-06] MEDS: METOCLOPRAMIDE HCL 5MG/ml INJ 2ml VIAL IV SCH ×3 (06:23→22:06)
[2020-10-06] MEDS: VASOPRESSIN 50 UNITS in D5W 5% 247.5 ML IV SCH (07:32)
[2020-10-06] MEDS ORDERED: LIDOCAINE W/ EPINEPHRINE 1 % INJ 30ML ONE (08:18)
[2020-10-06] MEDS: INSULIN LANTUS (GLARGINE) 1 /0.01ml (100units/ml) SC SCH ×2 (10:00→22:07)
[2020-10-06] MEDS: FAMOTIDINE (10MG/ML) 2ML VL IV SCH (10:09)
[2020-10-06] MEDS: SODIUM CHLOR 0.9% PF (SALINE LOCK) 10ML VIAL/SYR IV SCH ×2 (10:09→22:06)
[2020-10-06] MEDS: EPINEPHrine HCL 250 ML IV SCH (10:45)
[2020-10-06] MEDS: SODIUM BICARBONATE 50ML VIAL 100 ML in D5W 5% 1,000 ML IV SCH ×2 (12:44→21:30)
[2020-10-06] MEDS: HYDROCORTISONE SOD SUCC 100 MG/2ML INJ VIAL IV SCH ×2 (14:00→22:07)
[2020-10-06] MEDS ORDERED: TPN PER PHARMACY IV NR ×10 (20:00)
[2020-10-06] MEDS: SODIUM BICARBONATE 50ML VIAL 150 ML in D5W 5% 1,000 ML IV SCH (22:00)
[2020-10-07] VITALS (61 sets, daily range): BP systolic 54–166; BP diastolic 24–82
[2020-10-07] MEDS: MIDAZOLAM DRIP 50 mg/50mL 50 ML IV SCH ×5 (01:27→23:00)
[2020-10-07] MEDS: PROPOFOL 100 ML IV SCH (01:45)
[2020-10-07] MEDS: FREE WATER GT SCH ×6 (02:00→22:00)
[2020-10-07] MEDS: DOPamine 1600MCG/ML D5W 250 ML IV SCH (04:49)
[2020-10-07] MEDS: NOREPINEPHRINE 8 MG/250ML KIT 250 ML IV SCH ×4 (04:50→20:00)
[2020-10-07] MEDS: HYDROCORTISONE SOD SUCC 100 MG/2ML INJ VIAL IV SCH ×3 (05:51→22:00)
[2020-10-07] MEDS: METOCLOPRAMIDE HCL 5MG/ml INJ 2ml VIAL IV SCH ×3 (05:51→22:00)
[2020-10-07] MEDS: ACCU-CHEK COMFORT CURVE STRIP VI SCH ×3 (05:52→12:00)
[2020-10-07] MEDS: InsuLIN REG 1unit/0.01ml Soln (100units/ml) SC SCH ×5 (05:52→18:00)
[2020-10-07 06:05] LABS: Mean Corpuscular Hgb Conc. 34.1 g/dL (32.0-36.0); Red Cell Distribution Width 18.6 % (11.8-14.3); White Blood Cell 6.6 10^3/uL (4.4-10.8)
[2020-10-07 06:08] LABS: Hematocrit 20.1 % (41.0-53.0); Mean Corpuscular Hemoglobin 30.3 pg (28.0-32.0); Platelet Count (auto) 100 10^3/uL (140-450); Red Blood Cells 2.26 10^6/uL (4.5-5.90)
[2020-10-07 06:27] LABS: Chloride 104 mmol/L (98-107); Potassium 3.4 mmol/L (3.5-5.1); Sodium 135 mmol/L (136-145)
[2020-10-07 06:49] LABS: Alanine Aminotransferase 26 U/L (16-61); Alkaline Phosphatase 82 U/L (45-117); Anion Gap 14 (5-15); Aspartate Aminotransferase 47 U/L (15-37); Bilirubin, Total 3.4 mg/dL (0.2-1.0); Blood Urea Nitrogen 62 mg/dL (7-18); Carbon Dioxide 17 mmol/L (21-32); GFR African American 28 mL/min; GFR Non-African American 23 mL/min; Glucose 328 mg/dL (74-106); Magnesium 2.1 mg/dL (1.6-2.6); Phosphorus 4.8 mg/dL (2.5-4.90)
[2020-10-07 06:54] LABS: Albumin 0.6 g/dL (3.4-5.0); Calcium 5.5 mg/dL (8.5-10.1)
[2020-10-07 06:55] LABS: CRP High Sensitivity > 19.0 mg/dL (< 0.3)
[2020-10-07 07:45] LABS: Basophils % (manual) 0 (0.0-2.0); Blast Cells 0; Eosinophils % (manual) 0 (0-7); Hemoglobin 6.9 g/dL (13.5-17.5); Myelocytes % 0; Promyelocytes % 0; Reactive Lymphocytes 0
[2020-10-07] MEDS: PHENYLEPHRINE INJ 40 MG in SODIUM CHL 0.9% 250 ML IV SCH (08:30)
[2020-10-07] MEDS: VASOPRESSIN 50 UNITS in D5W 5% 247.5 ML IV SCH (08:45)
[2020-10-07] MEDS: SODIUM CHLOR 0.9% PF (SALINE LOCK) 10ML VIAL/SYR IV SCH ×2 (09:14→22:00)
[2020-10-07] MEDS: FAMOTIDINE (10MG/ML) 2ML VL IV SCH (09:14)
[2020-10-07 09:44] LABS: Band Neutrophils % (manual) 33; Lymphocytes % (manual) 5 (10.0-50.0); Metamyelocytes % 1; Monocytes % (manual) 3 (0-12)
[2020-10-07] MEDS: INSULIN LANTUS (GLARGINE) 1 /0.01ml (100units/ml) SC SCH ×2 (10:00→22:00)
[2020-10-07] MEDS ORDERED: POTASSIUM CHL 20MEQ/100ML 100 ML IV ONE (10:00)
[2020-10-07] MEDS: EPINEPHrine HCL 250 ML IV SCH (10:45)
[2020-10-07] MEDS: SODIUM BICARBONATE 50ML VIAL 150 ML in D5W 5% 1,000 ML IV SCH ×3 (13:00→20:00)
[2020-10-07] MEDS ORDERED: CALCIUM GLUC 4.65meq/50ml D5AE 50 ML IV ONE (14:30)
[2020-10-07] MEDS ORDERED: TPN PER PHARMACY IV NR ×9 (20:00)
[2020-10-08] VITALS (76 sets, daily range): BP systolic 97–136; BP diastolic 36–84
[2020-10-08] MEDS: DOPamine 1600MCG/ML D5W 250 ML IV SCH (00:15)
[2020-10-08] MEDS: InsuLIN REG 1unit/0.01ml Soln (100units/ml) SC SCH ×4 (00:20→18:00)
[2020-10-08] MEDS: fentaNYL Drip 2500mCg/250mlNS 250 ML IV SCH ×2 (00:25→14:17)
[2020-10-08] MEDS: ACCU-CHEK COMFORT CURVE STRIP VI SCH ×4 (00:25→18:00)
[2020-10-08] MEDS: PROPOFOL 100 ML IV SCH (01:45)
[2020-10-08] MEDS: FREE WATER GT SCH ×5 (02:19→22:00)
[2020-10-08] MEDS: MIDAZOLAM DRIP 50 mg/50mL 50 ML IV SCH ×3 (06:00→14:19)
[2020-10-08] MEDS: METOCLOPRAMIDE HCL 5MG/ml INJ 2ml VIAL IV SCH ×3 (06:01→22:00)
[2020-10-08] MEDS: HYDROCORTISONE SOD SUCC 100 MG/2ML INJ VIAL IV SCH ×3 (06:01→22:00)
[2020-10-08 07:11] LABS: Potassium 3.4 mmol/L (3.5-5.1)
[2020-10-08 07:15] LABS: Hematocrit 23.6 % (41.0-53.0); Hemoglobin 8.2 g/dL (13.5-17.5); Mean Corpuscular Hemoglobin 30.6 pg (28.0-32.0); Mean Corpuscular Volume 87.6 fL (80.0-100.0); Platelet Count (auto) 96 10^3/uL (140-450); Red Blood Cells 2.69 10^6/uL (4.5-5.90); Red Cell Distribution Width 17.5 % (11.8-14.3); White Blood Cell 7.2 10^3/uL (4.4-10.8)
[2020-10-08 07:27] LABS: BUN/Creatinine Ratio 22.1; Bilirubin, Total 3.3 mg/dL (0.2-1.0); CRP High Sensitivity 12.9 mg/dL (< 0.3); Calcium 6.1 mg/dL (8.5-10.1); Magnesium 2.4 mg/dL (1.6-2.6); Phosphorus 4.6 mg/dL (2.5-4.90); Total Protein 4.5 g/dL (6.4-8.2)
[2020-10-08 07:37] LABS: Basophils % (manual) 0 (0.0-2.0); Blast Cells 0; Eosinophils % (manual) 0 (0-7); Myelocytes % 0; Promyelocytes % 0; Reactive Lymphocytes 0
[2020-10-08 07:53] LABS: Albumin 0.7 g/dL (3.4-5.0)
[2020-10-08] MEDS: NOREPINEPHRINE 8 MG/250ML KIT 250 ML IV SCH (08:36)
[2020-10-08] MEDS: VASOPRESSIN 50 UNITS in D5W 5% 247.5 ML IV SCH (08:45)
[2020-10-08 09:22] LABS: Band Neutrophils % (manual) 18; Lymphocytes % (manual) 1 (10.0-50.0); Metamyelocytes % 1; Monocytes % (manual) 1 (0-12)
[2020-10-08] MEDS: FAMOTIDINE (10MG/ML) 2ML VL IV SCH (10:09)
[2020-10-08] MEDS: SODIUM CHLOR 0.9% PF (SALINE LOCK) 10ML VIAL/SYR IV SCH ×2 (10:09→22:00)
[2020-10-08] MEDS: INSULIN LANTUS (GLARGINE) 1 /0.01ml (100units/ml) SC SCH ×2 (10:45→22:00)
[2020-10-08] MEDS: EPINEPHrine HCL 250 ML IV SCH (10:45)
[2020-10-08] MEDS ORDERED: POTASSIUM EFFERVESENT TAB 25 MEQ GT ONE (11:00)
[2020-10-08] MEDS ORDERED: POTASSIUM CHL 20MEQ/100ML 100 ML IV ONE (11:30)
[2020-10-08] MEDS: SODIUM BICARBONATE 50ML VIAL 150 ML in D5W 5% 1,000 ML IV SCH (14:15)
[2020-10-08] MEDS: PHENYLEPHRINE INJ 40 MG in SODIUM CHL 0.9% 250 ML IV SCH (18:00)
[2020-10-08] MEDS ORDERED: TPN PER PHARMACY IV NR ×10 (20:00)
[2020-10-09] VITALS (67 sets, daily range): BP systolic 91–151; BP diastolic 48–75
[2020-10-09] MEDS: SODIUM BICARBONATE 50ML VIAL 150 ML in D5W 5% 1,000 ML IV SCH ×4 (00:06→23:20)
[2020-10-09] MEDS: ACCU-CHEK COMFORT CURVE STRIP VI SCH ×4 (00:06→18:00)
[2020-10-09] MEDS: fentaNYL Drip 2500mCg/250mlNS 250 ML IV SCH (01:08)
[2020-10-09] MEDS: MIDAZOLAM DRIP 50 mg/50mL 50 ML IV SCH ×4 (01:09→22:33)
[2020-10-09] MEDS: FREE WATER GT SCH ×2 (02:00→05:58)
[2020-10-09] MEDS: NOREPINEPHRINE 8 MG/250ML KIT 250 ML IV SCH (02:48)
[2020-10-09 05:37] LABS: Magnesium 2.4 mg/dL (1.6-2.6); Potassium 3.4 mmol/L (3.5-5.1)
[2020-10-09 05:44] LABS: Hematocrit 23.6 % (41.0-53.0)
[2020-10-09 05:46] LABS: Hemoglobin 8.3 g/dL (13.5-17.5); Mean Corpuscular Hemoglobin 30.6 pg (28.0-32.0); Mean Corpuscular Hgb Conc. 35.2 g/dL (32.0-36.0); Mean Corpuscular Volume 86.8 fL (80.0-100.0); Platelet Count (auto) 79 10^3/uL (140-450); Red Blood Cells 2.72 10^6/uL (4.5-5.90); Red Cell Distribution Width 17.8 % (11.8-14.3); White Blood Cell 8.4 10^3/uL (4.4-10.8)
[2020-10-09 05:54] LABS: Pre Albumin 4.8 mg/dL (20.0-40.0)
[2020-10-09 05:56] LABS: BUN/Creatinine Ratio 21.2; Bilirubin, Total 2.8 mg/dL (0.2-1.0); CRP High Sensitivity 8.97 mg/dL (< 0.3); Phosphorus 3.9 mg/dL (2.5-4.90); Total Protein 4.6 g/dL (6.4-8.2)
[2020-10-09] MEDS: METOCLOPRAMIDE HCL 5MG/ml INJ 2ml VIAL IV SCH ×3 (06:02→22:00)
[2020-10-09] MEDS: HYDROCORTISONE SOD SUCC 100 MG/2ML INJ VIAL IV SCH ×3 (06:02→22:00)
[2020-10-09] MEDS: InsuLIN REG 1unit/0.01ml Soln (100units/ml) SC SCH ×4 (06:03→18:00)
[2020-10-09 06:32] LABS: Basophils % (manual) 0 (0.0-2.0); Blast Cells 0; Monocytes % (manual) 0 (0-12); Promyelocytes % 0; Reactive Lymphocytes 0
[2020-10-09 06:53] LABS: Albumin 0.7 g/dL (3.4-5.0); Calcium 5.9 mg/dL (8.5-10.1)
[2020-10-09 07:38] LABS: Band Neutrophils % (manual) 22; Eosinophils % (manual) 1 (0-7); Lymphocytes % (manual) 5 (10.0-50.0); Metamyelocytes % 3; Myelocytes % 1
[2020-10-09] MEDS: DOPamine 1600MCG/ML D5W 250 ML IV SCH (08:33)
[2020-10-09] MEDS: VASOPRESSIN 50 UNITS in D5W 5% 247.5 ML IV SCH (08:45)
[2020-10-09] MEDS ORDERED: POTASSIUM CHL 20MEQ/100ML 100 ML IV ONE (10:00)
[2020-10-09] MEDS: PHENYLEPHRINE INJ 40 MG in SODIUM CHL 0.9% 250 ML IV SCH (10:40)
[2020-10-09] MEDS: EPINEPHrine HCL 250 ML IV SCH (10:45)
[2020-10-09] MEDS: FAMOTIDINE (10MG/ML) 2ML VL IV SCH (11:35)
[2020-10-09] MEDS: SODIUM CHLOR 0.9% PF (SALINE LOCK) 10ML VIAL/SYR IV SCH ×2 (11:36→22:00)
[2020-10-09] MEDS: INSULIN LANTUS (GLARGINE) 1 /0.01ml (100units/ml) SC SCH ×2 (11:43→22:00)
[2020-10-09] MEDS ORDERED: TPN PER PHARMACY IV NR ×8 (20:00)
[2020-10-10] VITALS (83 sets, daily range): BP systolic 83–130; BP diastolic 49–72
[2020-10-10] MEDS: fentaNYL Drip 2500mCg/250mlNS 250 ML IV SCH ×2 (01:00→20:00)
[2020-10-10] MEDS: MIDAZOLAM DRIP 50 mg/50mL 50 ML IV SCH ×2 (03:00→20:00)
[2020-10-10] MEDS: PHENYLEPHRINE INJ 40 MG in SODIUM CHL 0.9% 250 ML IV SCH (03:20)
[2020-10-10] MEDS: DOPamine 1600MCG/ML D5W 250 ML IV SCH (05:00)
[2020-10-10] MEDS: HYDROCORTISONE SOD SUCC 100 MG/2ML INJ VIAL IV SCH ×3 (06:18→21:50)
[2020-10-10] MEDS: METOCLOPRAMIDE HCL 5MG/ml INJ 2ml VIAL IV SCH ×3 (06:18→22:00)
[2020-10-10] MEDS: ACCU-CHEK COMFORT CURVE STRIP VI SCH ×3 (06:18→12:00)
[2020-10-10] MEDS: InsuLIN REG 1unit/0.01ml Soln (100units/ml) SC SCH ×4 (06:25→18:00)
[2020-10-10 06:50] LABS: Hemoglobin 7.7 g/dL (13.5-17.5); Mean Corpuscular Hgb Conc. 35.5 g/dL (32.0-36.0)
[2020-10-10 06:53] LABS: Hematocrit 21.6 % (41.0-53.0); Mean Corpuscular Hemoglobin 30.5 pg (28.0-32.0); Platelet Count (auto) 81 10^3/uL (140-450); Red Blood Cells 2.51 10^6/uL (4.5-5.90); Red Cell Distribution Width 17.9 % (11.8-14.3); White Blood Cell 9.9 10^3/uL (4.4-10.8)
[2020-10-10 07:06] LABS: Magnesium 2.6 mg/dL (1.6-2.6); Potassium 3.9 mmol/L (3.5-5.1)
[2020-10-10 07:07] LABS: Basophils % (manual) 0 (0.0-2.0); Blast Cells 0; Eosinophils % (manual) 0 (0-7); Promyelocytes % 0; Reactive Lymphocytes 0
[2020-10-10 07:18] LABS: BUN/Creatinine Ratio 22.7; Bilirubin, Total 2.5 mg/dL (0.2-1.0); CRP High Sensitivity 6.97 mg/dL (< 0.3); Phosphorus 4.5 mg/dL (2.5-4.90); Total Protein 4.2 g/dL (6.4-8.2)
[2020-10-10 07:36] LABS: Albumin 0.6 g/dL (3.4-5.0); Calcium 5.5 mg/dL (8.5-10.1)
[2020-10-10 08:47] LABS: Band Neutrophils % (manual) 9; Lymphocytes % (manual) 2 (10.0-50.0); Metamyelocytes % 4; Monocytes % (manual) 1 (0-12); Myelocytes % 2
[2020-10-10] MEDS: INSULIN LANTUS (GLARGINE) 1 /0.01ml (100units/ml) SC SCH ×2 (10:00→22:00)
[2020-10-10] MEDS: SODIUM CHLOR 0.9% PF (SALINE LOCK) 10ML VIAL/SYR IV SCH ×2 (10:04→22:00)
[2020-10-10] MEDS: FAMOTIDINE (10MG/ML) 2ML VL IV SCH (13:04)
[2020-10-10] MEDS ORDERED: TPN PER PHARMACY IV NR ×9 (20:00)
[2020-10-10] MEDS: NOREPINEPHRINE 8 MG/250ML KIT 250 ML IV SCH (20:00)
[2020-10-11] VITALS (97 sets, daily range): BP systolic 88–146; BP diastolic 47–77
[2020-10-11] MEDS: ACCU-CHEK COMFORT CURVE STRIP VI SCH ×2 (00:07→06:11)
[2020-10-11] MEDS: ACETAMINOPHEN 500 MG TAB PO PRN (00:50)
[2020-10-11] MEDS ORDERED: ALBUTEROL SULF 2.5 MG/0.5ML(0.5%) NEB SOLN NEB ONE (02:00)
[2020-10-11] MEDS: DOPamine 1600MCG/ML D5W 250 ML IV SCH ×2 (05:00→22:00)
[2020-10-11] MEDS: NOREPINEPHRINE 8 MG/250ML KIT 250 ML IV SCH ×2 (05:00→22:00)
[2020-10-11] MEDS: fentaNYL Drip 2500mCg/250mlNS 250 ML IV SCH (05:00)
[2020-10-11] MEDS: MIDAZOLAM DRIP 50 mg/50mL 50 ML IV SCH ×3 (05:00→23:14)
[2020-10-11] MEDS: InsuLIN REG 1unit/0.01ml Soln (100units/ml) SC SCH ×3 (06:00→18:00)
[2020-10-11] MEDS: HYDROCORTISONE SOD SUCC 100 MG/2ML INJ VIAL IV SCH ×3 (06:10→22:00)
[2020-10-11] MEDS: METOCLOPRAMIDE HCL 5MG/ml INJ 2ml VIAL IV SCH ×3 (06:10→22:00)
[2020-10-11 06:53] LABS: BUN/Creatinine Ratio 24.8; Bilirubin, Total 2.3 mg/dL (0.2-1.0); Magnesium 2.8 mg/dL (1.6-2.6); Phosphorus 5.3 mg/dL (2.5-4.90)
[2020-10-11 08:24] LABS: Albumin 0.5 g/dL (3.4-5.0); Calcium 5.4 mg/dL (8.5-10.1)
[2020-10-11] MEDS: INSULIN LANTUS (GLARGINE) 1 /0.01ml (100units/ml) SC SCH ×2 (10:00→22:00)
[2020-10-11] MEDS: SODIUM CHLOR 0.9% PF (SALINE LOCK) 10ML VIAL/SYR IV SCH ×2 (10:00→22:00)
[2020-10-11] MEDS: FAMOTIDINE (10MG/ML) 2ML VL IV SCH (10:00)
[2020-10-11 10:29] LABS: Potassium 5.2 mmol/L (3.5-5.1)
[2020-10-11] MEDS ORDERED: CALCIUM GLUC 4.65meq/50ml D5AE 50 ML IV ONE (10:30)
[2020-10-11] MEDS ORDERED: CALCIUM CHL 100MG/ML 500 MG in D5W 5% 100 ML IV ONE (10:30)
[2020-10-11 10:32] LABS: Red Cell Distribution Width 18.5 % (11.8-14.3)
[2020-10-11 10:35] LABS: Hematocrit 22.9 % (41.0-53.0); Mean Corpuscular Hemoglobin 30.4 pg (28.0-32.0); Mean Corpuscular Hgb Conc. 34.9 g/dL (32.0-36.0); Mean Corpuscular Volume 87.2 fL (80.0-100.0); Platelet Count (auto) 102 10^3/uL (140-450); Red Blood Cells 2.62 10^6/uL (4.5-5.90); White Blood Cell 14.7 10^3/uL (4.4-10.8)
[2020-10-11 10:44] LABS: Basophils % (manual) 0 (0.0-2.0); Blast Cells 0; Monocytes % (manual) 0 (0-12); Promyelocytes % 0; Reactive Lymphocytes 0
[2020-10-11] MEDS ORDERED: AMINO ACID INFUSION IN D10W 1,000 ML IV NR (11:15)
[2020-10-11 13:50] LABS: Eosinophils % (manual) 3 (0-7); Lymphocytes % (manual) 2 (10.0-50.0); Myelocytes % 2
[2020-10-11 13:51] LABS: Band Neutrophils % (manual) 20; Metamyelocytes % 3
[2020-10-11] MEDS ORDERED: BUMETANIDE 2.5mg/10ml (0.25 mg/ml) INJ IV ONE (17:30)
[2020-10-11] MEDS ORDERED: TPN PER PHARMACY IV NR ×7 (20:00)
[2020-10-11] MEDS: ALBUTEROL SULF 2.5 MG/0.5ML(0.5%) NEB SOLN NEB SCH (22:35)
[2020-10-11] MEDS: IPRATROPIUM BROM 0.5 MG/2.5ML INH SOL NEB SCH (22:35)
[2020-10-12] VITALS (98 sets, daily range): BP systolic 89–152; BP diastolic 48–77
[2020-10-12] MEDS: PROPOFOL 100 ML IV SCH (01:45)
[2020-10-12] MEDS: fentaNYL Drip 2500mCg/250mlNS 250 ML IV SCH ×2 (03:00→15:53)
[2020-10-12] MEDS: PHENYLEPHRINE INJ 40 MG in SODIUM CHL 0.9% 250 ML IV SCH (05:20)
[2020-10-12] MEDS: ACCU-CHEK COMFORT CURVE STRIP VI SCH ×4 (05:47→18:00)
[2020-10-12] MEDS: InsuLIN REG 1unit/0.01ml Soln (100units/ml) SC SCH ×4 (05:48→18:00)
[2020-10-12] MEDS: METOCLOPRAMIDE HCL 5MG/ml INJ 2ml VIAL IV SCH ×3 (06:00→22:00)
[2020-10-12] MEDS: HYDROCORTISONE SOD SUCC 100 MG/2ML INJ VIAL IV SCH ×3 (06:00→22:00)
[2020-10-12] MEDS: ALBUTEROL SULF 2.5 MG/0.5ML(0.5%) NEB SOLN NEB SCH ×3 (06:49→17:51)
[2020-10-12] MEDS: IPRATROPIUM BROM 0.5 MG/2.5ML INH SOL NEB SCH ×3 (06:49→17:51)
[2020-10-12] MEDS: VASOPRESSIN 50 UNITS in D5W 5% 247.5 ML IV SCH (08:45)
[2020-10-12] MEDS: FAMOTIDINE (10MG/ML) 2ML VL IV SCH (10:00)
[2020-10-12] MEDS: SODIUM CHLOR 0.9% PF (SALINE LOCK) 10ML VIAL/SYR IV SCH ×2 (10:00→22:00)
[2020-10-12] MEDS: INSULIN LANTUS (GLARGINE) 1 /0.01ml (100units/ml) SC SCH ×2 (10:00→22:00)
[2020-10-12] MEDS: EPINEPHrine HCL 250 ML IV SCH (10:45)
[2020-10-12 11:06] LABS: Basophils # (auto) 0 10 ^3/uL (0-0.2); Basophils % (auto) 0.1 % (0.0-2.0); Eosinophils # (auto) 0 10 ^3/uL (0-0.8); Eosinophils % (auto) 0.1 % (0.0-7.0); Lymphocytes # (auto) 0.4 10 ^3/uL (0.4-5.4); Lymphocytes % (auto) 2.2 % (10.0-50.0)
[2020-10-12 11:08] LABS: Hematocrit 24.3 % (41.0-53.0); Hemoglobin 8.3 g/dL (13.5-17.5); Mean Corpuscular Hemoglobin 29.5 pg (28.0-32.0); Monocytes # (auto) 0.1 10 ^3/uL (0-1.3); Monocytes % (auto) 0.8 % (0.0-12.0); Neutrophils # (auto) 16.7 10 ^3/uL (1.6-8.6); Neutrophils % (auto) 96.8 % (37.0-80.0); Platelet Count (auto) 107 10^3/uL (140-450); Red Cell Distribution Width 18.3 % (11.8-14.3); White Blood Cell 17.3 10^3/uL (4.4-10.8)
[2020-10-12 11:25] LABS: Magnesium 2.9 mg/dL (1.6-2.6); Potassium 5.4 mmol/L (3.5-5.1)
[2020-10-12 11:30] LABS: BUN/Creatinine Ratio 23.6; Bilirubin, Total 2.4 mg/dL (0.2-1.0); Phosphorus 7.9 mg/dL (2.5-4.90); Total Protein 4.6 g/dL (6.4-8.2)
[2020-10-12 11:36] LABS: Albumin 0.7 g/dL (3.4-5.0); Calcium 5.8 mg/dL (8.5-10.1)
[2020-10-12 12:11] LABS: Creatinine, Urine 13 mg/dL (30.0-125.0); Sodium Urine 38 mmol/L (40-220)
[2020-10-12 12:13] LABS: Urine Bacteria NONE SEEN /hpf (None Seen); Urine Blood 2+ /uL (Negative); Urine Budding Yeast MANY /hpf (None Seen); Urine Mucus FEW (None Seen); Urine Specific Gravity 1.015 (1.001-1.035); Urine WBC 504 /hpf (0 - 3); Urine WBC Clumps PRESENT /hpf (None Seen)
[2020-10-12] MEDS: SODIUM BICARBONATE 50ML VIAL 150 ML in D5W 5% 1,000 ML IV SCH (12:40)
[2020-10-12] MEDS: MIDAZOLAM DRIP 50 mg/50mL 50 ML IV SCH ×2 (15:52→19:00)
[2020-10-12] MEDS: NOREPINEPHRINE 8 MG/250ML KIT 250 ML IV SCH (15:52)
[2020-10-12] MEDS ORDERED: TPN PER PHARMACY IV NR ×7 (20:00)
[2020-10-12] MEDS: DOPamine 1600MCG/ML D5W 250 ML IV SCH (22:00)
[2020-10-12 22:08] LABS: BUN/Creatinine Ratio 25.2
[2020-10-12 22:57] LABS: Potassium 5.7 mmol/L (3.5-5.1)
[2020-10-12 22:59] LABS: Calcium 5.8 mg/dL (8.5-10.1)
[2020-10-13] VITALS (93 sets, daily range): BP systolic 91–124; BP diastolic 43–85
[2020-10-13] MEDS: PROPOFOL 100 ML IV SCH (01:45)
[2020-10-13] MEDS: ALBUTEROL SULF 2.5 MG/0.5ML(0.5%) NEB SOLN NEB SCH ×2 (06:00→14:05)
[2020-10-13] MEDS: InsuLIN REG 1unit/0.01ml Soln (100units/ml) SC SCH ×4 (06:00→22:00)
[2020-10-13] MEDS: IPRATROPIUM BROM 0.5 MG/2.5ML INH SOL NEB SCH ×2 (06:00→14:05)
[2020-10-13] MEDS: NOREPINEPHRINE 8 MG/250ML KIT 250 ML IV SCH (06:00)
[2020-10-13] MEDS: ACCU-CHEK COMFORT CURVE STRIP VI SCH ×4 (06:23→22:00)
[2020-10-13] MEDS: METOCLOPRAMIDE HCL 5MG/ml INJ 2ml VIAL IV SCH (06:23)
[2020-10-13] MEDS: HYDROCORTISONE SOD SUCC 100 MG/2ML INJ VIAL IV SCH ×2 (06:23→22:00)
[2020-10-13 08:36] LABS: Basophils # (auto) 0 10 ^3/uL (0-0.2); Eosinophils # (auto) 0 10 ^3/uL (0-0.8); Hemoglobin 7.5 g/dL (13.5-17.5); Lymphocytes # (auto) 0.3 10 ^3/uL (0.4-5.4); Neutrophils # (auto) 17.9 10 ^3/uL (1.6-8.6); Nucleated Red Blood Cells % 0.1 %; White Blood Cell 18.5 10^3/uL (4.4-10.8)
[2020-10-13 08:37] LABS: Basophils % (auto) 0.1 % (0.0-2.0); Hematocrit 22.2 % (41.0-53.0); Lymphocytes % (auto) 1.7 % (10.0-50.0); Mean Corpuscular Hemoglobin 29.5 pg (28.0-32.0); Mean Corpuscular Hgb Conc. 33.6 g/dL (32.0-36.0); Mean Corpuscular Volume 87.9 fL (80.0-100.0); Monocytes # (auto) 0.2 10 ^3/uL (0-1.3); Monocytes % (auto) 1.3 % (0.0-12.0); Neutrophils % (auto) 96.9 % (37.0-80.0); Platelet Count (auto) 123 10^3/uL (140-450); Red Blood Cells 2.53 10^6/uL (4.5-5.90); Red Cell Distribution Width 18.7 % (11.8-14.3)
[2020-10-13 09:04] LABS: Magnesium 2.8 mg/dL (1.6-2.6)
[2020-10-13 09:08] LABS: BUN/Creatinine Ratio 24.8; Bilirubin, Total 2.1 mg/dL (0.2-1.0); Total Protein 4.4 g/dL (6.4-8.2)
[2020-10-13 09:26] LABS: Phosphorus 8.9 mg/dL (2.5-4.90)
[2020-10-13 09:28] LABS: Potassium 5.7 mmol/L (3.5-5.1)
[2020-10-13 09:29] LABS: Albumin 0.8 g/dL (3.4-5.0); Calcium 5.8 mg/dL (8.5-10.1)
[2020-10-13] MEDS: SODIUM CHLOR 0.9% PF (SALINE LOCK) 10ML VIAL/SYR IV SCH ×2 (10:00→22:00)
[2020-10-13] MEDS: INSULIN LANTUS (GLARGINE) 1 /0.01ml (100units/ml) SC SCH ×2 (10:00→22:00)
[2020-10-13] MEDS: FAMOTIDINE (10MG/ML) 2ML VL IV SCH (10:00)
[2020-10-13] MEDS ORDERED: DEXTROSE (50%) 50ML SYRG IV ONE (10:00)
[2020-10-13] MEDS ORDERED: InsuLIN REG 1unit/0.01ml Soln (100units/ml) IV ONE (10:00)
[2020-10-13] MEDS: PHENYLEPHRINE INJ 40 MG in SODIUM CHL 0.9% 250 ML IV SCH ×2 (14:40→22:00)
[2020-10-13] MEDS: SODIUM BICARBONATE 50ML VIAL 150 ML in D5W 5% 1,000 ML IV SCH (15:15)
[2020-10-13] MEDS: SODIUM ZIRCONIUM CYCL 10 GM PAK GT SCH ×2 (15:15→22:53)
[2020-10-13] MEDS ORDERED: FUROSEMIDE 40 MG/4 ML VIAL IV ONE (15:30)
[2020-10-13] MEDS: TPN PER PHARMACY IV NR ×9 (20:00)
[2020-10-13] MEDS: VASOPRESSIN 50 UNITS in D5W 5% 247.5 ML IV SCH (22:00)
[2020-10-13] MEDS: EPINEPHrine HCL 250 ML IV SCH (22:00)
[2020-10-13] MEDS: MIDAZOLAM DRIP 50 mg/50mL 50 ML IV SCH (22:50)
[2020-10-14] VITALS (76 sets, daily range): BP systolic 75–137; BP diastolic 21–69
[2020-10-14] MEDS: SODIUM BICARBONATE 50ML VIAL 150 ML in D5W 5% 1,000 ML IV SCH ×2 (01:45→06:50)
[2020-10-14] MEDS: PROPOFOL 100 ML IV SCH (01:45)
[2020-10-14] MEDS: NOREPINEPHRINE 8 MG/250ML KIT 250 ML IV SCH ×2 (01:50→20:30)
[2020-10-14] MEDS: MIDAZOLAM DRIP 50 mg/50mL 50 ML IV SCH ×2 (02:57→21:26)
[2020-10-14] MEDS: fentaNYL Drip 2500mCg/250mlNS 250 ML IV SCH (03:23)
[2020-10-14] MEDS: DOPamine 1600MCG/ML D5W 250 ML IV SCH (03:23)
[2020-10-14 04:51] LABS: Basophils # (auto) 0 10 ^3/uL (0-0.2); Eosinophils # (auto) 0 10 ^3/uL (0-0.8); Hemoglobin 7.3 g/dL (13.5-17.5); Mean Corpuscular Volume 87.7 fL (80.0-100.0); Monocytes # (auto) 0.3 10 ^3/uL (0-1.3); Nucleated Red Blood Cells % 0.1 %
[2020-10-14 04:54] LABS: Basophils % (auto) 0.2 % (0.0-2.0); Hematocrit 21.4 % (41.0-53.0); Lymphocytes # (auto) 0.3 10 ^3/uL (0.4-5.4); Lymphocytes % (auto) 1.2 % (10.0-50.0); Mean Corpuscular Hemoglobin 29.9 pg (28.0-32.0); Monocytes % (auto) 1.4 % (0.0-12.0); Neutrophils # (auto) 20.4 10 ^3/uL (1.6-8.6); Neutrophils % (auto) 97.2 % (37.0-80.0); Platelet Count (auto) 139 10^3/uL (140-450); Red Blood Cells 2.44 10^6/uL (4.5-5.90); Red Cell Distribution Width 18.5 % (11.8-14.3)
[2020-10-14 04:57] LABS: INR 1.2 (0.9-1.15)
[2020-10-14 05:12] LABS: BUN/Creatinine Ratio 26.4; Bilirubin, Total 2.6 mg/dL (0.2-1.0); Magnesium 2.7 mg/dL (1.6-2.6); Total Protein 4.3 g/dL (6.4-8.2)
[2020-10-14 05:47] LABS: Albumin 0.8 g/dL (3.4-5.0); Calcium 5.6 mg/dL (8.5-10.1); Potassium 5.7 mmol/L (3.5-5.1)
[2020-10-14] MEDS: ACCU-CHEK COMFORT CURVE STRIP VI SCH ×4 (06:00→19:00)
[2020-10-14] MEDS: HYDROCORTISONE SOD SUCC 100 MG/2ML INJ VIAL IV SCH ×3 (06:00→22:00)
[2020-10-14] MEDS: InsuLIN REG 1unit/0.01ml Soln (100units/ml) SC SCH ×4 (06:00→19:00)
[2020-10-14] MEDS: SODIUM ZIRCONIUM CYCL 10 GM PAK GT SCH ×3 (06:00→22:00)
[2020-10-14] MEDS: IPRATROPIUM BROM 0.5 MG/2.5ML INH SOL NEB SCH ×3 (06:10→17:51)
[2020-10-14] MEDS: ALBUTEROL SULF 2.5 MG/0.5ML(0.5%) NEB SOLN NEB SCH ×3 (06:10→17:51)
[2020-10-14] MEDS: FAMOTIDINE (10MG/ML) 2ML VL IV SCH (10:00)
[2020-10-14] MEDS: INSULIN LANTUS (GLARGINE) 1 /0.01ml (100units/ml) SC SCH ×2 (10:00→22:00)
[2020-10-14] MEDS ORDERED: SODIUM CHL 0.9% 1000 ML BAG XX ONE (11:00)
[2020-10-14] MEDS ORDERED: ALBUMIN 25% 100 ML IV ONE (14:23)
[2020-10-14] MEDS: PHENYLEPHRINE INJ 40 MG in SODIUM CHL 0.9% 250 ML IV SCH (19:00)
[2020-10-14] MEDS: VASOPRESSIN 50 UNITS in D5W 5% 247.5 ML IV SCH (19:00)
[2020-10-14] MEDS: EPINEPHrine HCL 250 ML IV SCH (19:00)
[2020-10-14] MEDS: TPN PER PHARMACY IV NR ×9 (19:54)
[2020-10-14] MEDS ORDERED: TPN PER PHARMACY IV NR ×8 (20:00)
[2020-10-14] MEDS ORDERED: EPOETIN ALFA 10,000 UNIT/1 ML VIAL SC ONE (21:00)
[2020-10-15] VITALS (86 sets, daily range): BP systolic 52–170; BP diastolic 26–94
[2020-10-15] MEDS: NOREPINEPHRINE 8 MG/250ML KIT 250 ML IV SCH ×2 (01:15→05:55)
[2020-10-15] MEDS: PROPOFOL 100 ML IV SCH (01:45)
[2020-10-15] MEDS: MIDAZOLAM DRIP 50 mg/50mL 50 ML IV SCH ×2 (02:15→06:25)
[2020-10-15] MEDS ORDERED: fentaNYL Drip 2500mCg/250mlNS 250 ML IV SCH (02:30)
[2020-10-15] MEDS ORDERED: PHENYLEPHRINE HCL 10 MG/ML VL ONE (03:06)
[2020-10-15] MEDS: PHENYLEPHRINE INJ 40 MG in SODIUM CHL 0.9% 250 ML IV SCH ×4 (03:14→20:00)
[2020-10-15 05:24] LABS: Basophils # (auto) 0 10 ^3/uL (0-0.2); Eosinophils % (auto) 0.3 % (0.0-7.0); Lymphocytes # (auto) 0.3 10 ^3/uL (0.4-5.4); Lymphocytes % (auto) 1.6 % (10.0-50.0); Nucleated Red Blood Cells % 0.1 %; White Blood Cell 16.3 10^3/uL (4.4-10.8)
[2020-10-15 05:27] LABS: Basophils % (auto) 0.1 % (0.0-2.0); Eosinophils # (auto) 0 10 ^3/uL (0-0.8); Hematocrit 19.3 % (41.0-53.0); Mean Corpuscular Hemoglobin 29.3 pg (28.0-32.0); Mean Corpuscular Hgb Conc. 32.8 g/dL (32.0-36.0); Mean Corpuscular Volume 89.2 fL (80.0-100.0); Monocytes # (auto) 0.2 10 ^3/uL (0-1.3); Monocytes % (auto) 1.3 % (0.0-12.0); Neutrophils # (auto) 15.8 10 ^3/uL (1.6-8.6); Neutrophils % (auto) 96.7 % (37.0-80.0); Platelet Count (auto) 159 10^3/uL (140-450); Red Blood Cells 2.16 10^6/uL (4.5-5.90); Red Cell Distribution Width 18.8 % (11.8-14.3)
[2020-10-15 05:45] LABS: INR 1.2 (0.9-1.15); Potassium 4.7 mmol/L (3.5-5.1)
[2020-10-15] MEDS: ALBUTEROL SULF 2.5 MG/0.5ML(0.5%) NEB SOLN NEB SCH ×3 (05:58→19:21)
[2020-10-15] MEDS: IPRATROPIUM BROM 0.5 MG/2.5ML INH SOL NEB SCH ×3 (05:58→19:21)
[2020-10-15] MEDS: InsuLIN REG 1unit/0.01ml Soln (100units/ml) SC SCH ×4 (06:00→18:00)
[2020-10-15] MEDS: ACCU-CHEK COMFORT CURVE STRIP VI SCH ×4 (06:00→18:00)
[2020-10-15 06:07] LABS: Albumin 1.1 g/dL (3.4-5.0); BUN/Creatinine Ratio 21.8; Bilirubin, Total 2.6 mg/dL (0.2-1.0); CRP High Sensitivity 6.77 mg/dL (< 0.3); Magnesium 2.4 mg/dL (1.6-2.6); Phosphorus 7.4 mg/dL (2.5-4.90); Total Protein 4.4 g/dL (6.4-8.2)
[2020-10-15 06:12] LABS: Calcium 5.7 mg/dL (8.5-10.1); Hemoglobin 6.3 g/dL (13.5-17.5)
[2020-10-15] MEDS: HYDROCORTISONE SOD SUCC 100 MG/2ML INJ VIAL IV SCH ×3 (06:12→22:00)
[2020-10-15] MEDS: SODIUM ZIRCONIUM CYCL 10 GM PAK GT SCH ×3 (06:12→22:00)
[2020-10-15] MEDS: INSULIN LANTUS (GLARGINE) 1 /0.01ml (100units/ml) SC SCH ×2 (10:00→22:00)
[2020-10-15] MEDS: FAMOTIDINE (10MG/ML) 2ML VL IV SCH (10:00)
[2020-10-15] MEDS: DOPamine 1600MCG/ML D5W 250 ML IV SCH (10:30)
[2020-10-15] MEDS ORDERED: TPN PER PHARMACY IV NR ×8 (20:00)
[2020-10-15] MEDS ORDERED: POTASSIUM CHL 20MEQ/100ML 0 ML IV ONE (21:50)
[2020-10-15] MEDS: VASOPRESSIN 50 UNITS in D5W 5% 247.5 ML IV SCH (23:00)
[2020-10-15] MEDS: EPINEPHrine HCL 250 ML IV SCH (23:00)
[2020-10-16] VITALS: BP 60/13
[2020-10-16] MEDS: InsuLIN REG 1unit/0.01ml Soln (100units/ml) SC SCH
[2020-10-16] MEDS: ACCU-CHEK COMFORT CURVE STRIP VI SCH (00:08)
[2020-10-16 00:09] VITALS: BP 77/39
[2020-10-16] MEDS: NOREPINEPHRINE 8 MG/250ML KIT 250 ML IV SCH (00:09)
[2020-10-16] MEDS: DEXTROSE (50%) 50ML SYRG IV PRN (00:09)
[2020-10-16] MEDS ORDERED: SODIUM BICARBONATE 8.4% INJ 50ML SYRINGE IV ONE (00:15)
[2020-10-16] MEDS ORDERED: CALCIUM CHLOR(10%) 100MG/ML 10ML SYRINGE IV ONE (00:15)
[2020-10-16] MEDS ORDERED: EPINEPHrine HCL 1 MG/10 ML SYRG IV ONE (00:15)
[2020-10-16 13:25] LABS: Hepatitis A Ab IgM Negative; Hepatitis B Core IgM Negative; Hepatitis B Surface Antigen Negative (Negative); Hepatitis C Antibody Negative (Negative)
== END 2020-10-16 00:16 | DRG 870 ==
LOC: ER 18:48 → EDBD 18:48 → TELE 18:49 → ICU WEST 09-11 02:20 → TELE-WESTW 09-19 16:40 → ICU WEST 09-21 00:10
PROVIDERS: ADMIT Nurse Practitioner; ATTEND Internal Medicine
PROC: 5A1955Z Respiratory Ventilation, Greater than 96 Consecutive Hours (ICD-10-PCS; principal; 2020-09-10)
PROC: 0BH17EZ Insertion of Endotracheal Airway into Trachea, Via Natural or Artificial Opening (ICD-10-PCS; 2020-09-10)
PROC: 02HV33Z Insertion of Infusion Device into Superior Vena Cava, Percutaneous Approach (ICD-10-PCS; 2020-09-10)
PROC: 0D9670Z Drainage of Stomach with Drainage Device, Via Natural or Artificial Opening (ICD-10-PCS; 2020-09-10)
PROC: B548ZZA Ultrasonography of Superior Vena Cava, Guidance (ICD-10-PCS; 2020-09-10)
PROC: 02HV33Z Insertion of Infusion Device into Superior Vena Cava, Percutaneous Approach (ICD-10-PCS; 2020-09-14)
PROC: B548ZZA Ultrasonography of Superior Vena Cava, Guidance (ICD-10-PCS; 2020-09-14)
PROC: 5A1D70Z Performance of Urinary Filtration, Intermittent, Less than 6 Hours Per Day (ICD-10-PCS; 2020-09-25)
PROC: 5A1D70Z Performance of Urinary Filtration, Intermittent, Less than 6 Hours Per Day (ICD-10-PCS; 2020-09-27)
PROC: 0B9J8ZZ Drainage of Left Lower Lung Lobe, Via Natural or Artificial Opening Endoscopic (ICD-10-PCS; 2020-10-04)
PROC: 0B9F8ZZ Drainage of Right Lower Lung Lobe, Via Natural or Artificial Opening Endoscopic (ICD-10-PCS; 2020-10-04)
PROC: 30233N1 Transfusion of Nonautologous Red Blood Cells into Peripheral Vein, Percutaneous Approach (ICD-10-PCS; 2020-10-07)
PROC: 5A1D70Z Performance of Urinary Filtration, Intermittent, Less than 6 Hours Per Day (ICD-10-PCS; 2020-10-14)
PROC: 5A12012 Performance of Cardiac Output, Single, Manual (ICD-10-PCS; 2020-10-16)
DX: A41.89 Other specified sepsis (principal); R65.21 Severe sepsis with septic shock; U07.1 COVID-19; J96.01 Acute respiratory failure with hypoxia; I50.21 Acute systolic (congestive) heart failure; N17.0 Acute kidney failure with tubular necrosis; I21.A1 Myocardial infarction type 2; K72.00 Acute and subacute hepatic failure without coma; G93.41 Metabolic encephalopathy; J12.82 Pneumonia due to coronavirus disease 2019; I81 Portal vein thrombosis; E43 Unspecified severe protein-calorie malnutrition; E87.1 Hypo-osmolality and hyponatremia; E87.2 Acidosis; I13.0 Hypertensive heart and chronic kidney disease with heart failure and stage 1 through stage 4 chronic kidney disease, or unspecified chronic kidney disease; E87.0 Hyperosmolality and hypernatremia; J93.83 Other pneumothorax; K92.2 Gastrointestinal hemorrhage, unspecified; Z99.11 Dependence on respirator [ventilator] status; I47.2 Ventricular tachycardia; N39.0 Urinary tract infection, site not specified; J98.11 Atelectasis; Z66 Do not resuscitate; I46.9 Cardiac arrest, cause unspecified; R57.0 Cardiogenic shock; E78.5 Hyperlipidemia, unspecified; E11.22 Type 2 diabetes mellitus with diabetic chronic kidney disease; E87.6 Hypokalemia; K72.90 Hepatic failure, unspecified without coma; E66.9 Obesity, unspecified; R74.8 Abnormal levels of other serum enzymes; I49.9 Cardiac arrhythmia, unspecified; K70.0 Alcoholic fatty liver; N18.9 Chronic kidney disease, unspecified; E87.5 Hyperkalemia; E88.09 Other disorders of plasma-protein metabolism, not elsewhere classified; D69.6 Thrombocytopenia, unspecified; E83.51 Hypocalcemia; D50.0 Iron deficiency anemia secondary to blood loss (chronic); J98.2 Interstitial emphysema; Z68.33 Body mass index [BMI] 33.0-33.9, adult
CPT/HCPCS: 31500; 36415; 36569; 36600; 71045; 76700; 76705; 80048; 80053; 80074; 80076; 80202; 80320; 81001; 82040; 82270; 82310; 82570; 82728; 82805; 82962; 83036; 83605; 83615; 83735; 83880; 84100; 84300; 84443; 84478; 84484; 85007; 85025; 85027; 85379; 85610; 85730; 86141; 86850; 86900; 86901; 86920; 87040; 87070; 87077; 87081; 87086; 87088; 87186; 87205; 87426; 87493; 90935; 93306; 93970; 94002; 94003; 94640; 97110; 99291; A4618; G0378; J0171; J0330; J0610; J0885; J1100; J1642; J1815; J1956; J2250; J2543; J2704; J3430; J3480; J3490; J7060; J7131; P9047